=== PATIENT | male | born 1935 | race Caucasian/White ===

== ENCOUNTER → 2016-05-20 | Outpatient (CLI) | payer MEDICARE, BC ==
[2016-05-20 11:07] LABS: ANION GAP 12 (5-19); BLOOD UREA NITROGEN 25 mg/dL (7-20); CALCIUM 10.6 mg/dL (8.4-10.2); CARBON DIOXIDE 29 mmol/L (22-30); CHLORIDE 103 mmol/L (98-107); CREATININE RESULT 1.35 mg/dL (0.52-1.25); GLUCOSE 96 mg/dL (75-110); POTASSIUM 5.5 mmol/L (3.6-5.0); SODIUM 143.6 mmol/L (137-145)
== END ==
LOC: OD 09:41
PROVIDERS: ATTEND Internal Medicine Cardiovascular Disease
DX: I12.9 Hypertensive chronic kidney disease with stage 1 through stage 4 chronic kidney disease, or unspecified chronic kidney disease (principal); N18.2 Chronic kidney disease, stage 2 (mild); R73.09 Other abnormal glucose; I48.91 Unspecified atrial fibrillation; Z79.01 Long term (current) use of anticoagulants; I42.9 Cardiomyopathy, unspecified; E78.00 Pure hypercholesterolemia, unspecified
CPT/HCPCS: 36415; 80048; 83036

== ENCOUNTER 2016-07-29 13:09 | Inpatient (IN) | payer MEDICARE, BC ==
--- NOTE | 2016-07-29 13:30 | ER Document Report ---
ED General - General Stated Complaint: DIFFICULTY BREATHING Mode of Arrival: Ambulatory Information source: Patient, Dr. Office Notes: 81-year-old male history of congestive heart failure Michele ham presents from his physician's office with concerns of worsening congestive heart failure. Patient was noted to be satting 87% on room air at the office. Patient is not on oxygen at home. Patient's nut orchardist just stopped his Lasix 2 months ago and decreased the spironolactone Patient admits to weight gain peripheral edema TRAVEL OUTSIDE OF THE [place] IN LAST 30 DAYS: No - HPI Onset: Last week Onset/Duration: Persistent Quality of pain: No pain Severity: Moderate Pain Level: Denies Associated symptoms: Nonproductive cough, Shortness of breath Exacerbated by: Supine, Movement, Walking Relieved by: Denies Similar symptoms previously: Yes Recently seen / treated by doctor: Yes - Related Data Allergies/Adverse Reactions: No Known Allergies Allergy (Verified 07/29/16 14:24) Past Medical History - Social History Smoking Status: Never Smoker Cigarette use (# per day): No Chew tobacco use (# tins/day): No Smoking Education Provided: No Family History: Reviewed & Not Pertinent - Past Medical History Cardiac Medical History: Reports: Hx Atrial Fibrillation, Hx Hypertension Past Surgical History: Reports: Hx Orthopedic Surgery - right knee replacement - Immunizations Hx Diphtheria, Pertussis, Tetanus Vaccination: - unknown Review of Systems - Review of Systems Notes: REVIEW OF SYSTEMS: CONSTITUTIONAL : Denies fever, chills, or sweats. Denies recent illness. EENT: Denies eye, ear, throat, or mouth pain or symptoms. Denies nasal or sinus congestion or discharge. Denies throat, tongue, or mouth swelling or difficulty swallowing. CARDIOVASCULAR: Admits to peripheral edema RESPIRATORY: Admits to shortness of breath difficulty breathing GASTROINTESTINAL: Denies abdominal pain or distention. Denies nausea, vomiting , or diarrhea. Denies blood in vomitus, stools, or per rectum. Denies black, tarry stools. Denies constipation. GENITOURINARY: Denies difficulty urinating, painful urination, burning, frequency, blood in urine, or discharge. MUSCULOSKELETAL: Denies back or neck pain or stiffness. Denies joint pain or swelling. SKIN: Denies rash, lesions or sores. HEMATOLOGIC : Denies easy bruising or bleeding. LYMPHATIC: Denies swollen, enlarged glands. NEUROLOGICAL: Denies confusion or altered mental status. Denies passing out or loss of consciousness. Denies dizziness or lightheadedness. Denies headache. Denies weakness or paralysis or loss of use of either side. Denies problems with gait or speech. Denies sensory loss, numbness, or tingling. Denies seizures. PSYCHIATRIC: Denies anxiety or stress. Denies depression, suicidal ideation, or homicidal ideation. ALL OTHER SYSTEMS REVIEWED AND NEGATIVE. Dictation was performed using [employer] voice recognition software PHYSICAL EXAMINATION: GENERAL: Well-appearing, well-nourished and in mild respiratory distress hypoxic HEAD: Atraumatic, normocephalic. EYES: Pupils equal round and reactive to light, extraocular movements intact, sclera anicteric, conjunctiva are normal. ENT: Nares patent, oropharynx clear without exudates. Moist mucous membranes. NECK: Normal range of motion, supple without lymphadenopathy LUNGS: Coarse rhonchi all throughout HEART: Regular rate and rhythm without murmurs ABDOMEN: Soft, nontender, nondistended abdomen. No guarding, no rebound. No masses appreciated. Musculoskeletal: +3 pitting edema bilateral lower extremities NEUROLOGICAL: Cranial nerves grossly intact. Normal speech, normal gait. Normal sensory, motor exams PSYCH: Normal mood, normal affect. SKIN: Warm, Dry, normal turgor, no rashes or lesions noted. Physical Exam - Vital signs Vitals: Temp Pulse BP Pulse Ox 97.6 F 78 160/86 H 89 L 07/29/16 13:17 07/29/16 13:17 07/29/16 13:17 07/29/16 13:17 Course - Re-evaluation Re-evalutation: 07/29/16 14:07 Patient obvious CHF exacerbation, BiPAP ordered. Lasix has been ordered as well. Patient is noted to be hypoxic on room air 07/29/16 14:56 Dr gunn will admit for the hypoxemia and copd exacerbation - Vital Signs Vital signs: Temp Pulse Resp BP Pulse Ox 97.6 F 78 17 160/86 H 99 07/29/16 13:17 07/29/16 13:17 07/29/16 14:00 07/29/16 13:17 07/29/16 14:00 - Laboratory Result Diagrams: 07/29/16 13:30 07/29/16 13:30 Laboratory results interpreted by me: 07/29/16 07/29/16 07/29/16 13:30 13:30 13:30 RDW 15.6 H Lymphocytes % 12.5 L Sodium 147.9 H BUN 29 H Creatinine 1.37 H Est GFR (Non-Af Amer) 50 L Calcium 10.3 H Direct Bilirubin 0.5 H Alkaline Phosphatase 136 H NT-Pro-B Natriuret Pep 3370 H Urine Protein Urine Glucose (UA) Urine Urobilinogen 07/29/16 14:00 RDW Lymphocytes % Sodium BUN Creatinine Est GFR (Non-Af Amer) Calcium Direct Bilirubin Alkaline Phosphatase NT-Pro-B Natriuret Pep Urine Protein 100 H Urine Glucose (UA) 50 H Urine Urobilinogen 2.0 H - Diagnostic Test Radiology reviewed: Image reviewed, Reports reviewed - chf exacerbation - EKG Interpretation by Me EKG shows normal: Sinus rhythm, [place], Intervals, QRS Complexes Critical Care Note - Critical Care Note Total time excluding time spent on procedures (mins): 34 Comments: 34 minutes of critical care time spent in direct contact evaluating and reevaluating the patient, treating symptoms, reviewing labs and studies and speaking with family and consultants excluding any procedures Discharge - Discharge Clinical Impression: Hypoxemia Hypertension Qualifiers: Hypertension type: essential hypertension Qualified Code(s): I10 - Essential ( primary) hypertension Acute on chronic congestive heart failure Qualifiers: Congestive heart failure type: systolic Qualified Code(s): I50.23 - Acute on chronic systolic (congestive) heart failure Condition: Stable Disposition: ADMITTED INPATIENT Admitting Provider: Hospitalist Unit Admitted: [facility]
[2016-07-29 13:46] LABS: ABSOLUTE BASOPHILS # (AUTO) 0.1 10^3/uL (0.0-0.2); ABSOLUTE EOSINOPHILS # (AUTO) 0.1 10^3/uL (0.0-0.6); ABSOLUTE LYMPHOCYTES (AUTO) 1.2 10^3/uL (0.5-4.7); ABSOLUTE MONOCYTES (AUTO) 0.8 10^3/uL (0.1-1.4); ABSOLUTE NEUT (AUTO) 7.6 10^3/uL (1.7-8.2); BASOPHILS % (AUTO) 0.6 % (0-2); EOSINOPHILS % (AUTO) 0.7 % (0-6); HEMATOCRIT 47.2 % (37.9-51.0); HGB HCT DIFFERENCE 0.8; LYMPHOCYTES % (AUTO) 12.5 % (13-45); MEAN CORPUSCULAR HEMOGLOBIN 32.9 pg (27.0-33.4); MEAN CORPUSCULAR HGB CONC 33.9 g/dL (32.0-36.0); MEAN CORPUSCULAR VOLUME 97 fl (80-97); MONOCYTES % (AUTO) 8.3 % (3-13); RED BLOOD COUNT 4.86 10^6/uL (4.35-5.55); RED CELL DISTRIBUTION WIDTH 15.6 % (11.5-14.0); SEGMENTED NEUTROPHILS % (AUTO) 77.9 % (42-78); WHITE BLOOD COUNT 9.8 10^3/uL (4.0-10.5)
[2016-07-29 14:02] LABS: ALANINE AMINOTRANSFERASE 32 U/L (21-72); ALKALINE PHOSPHATASE 136 U/L (38-126); ANION GAP 14 (5-19); ASPARTATE AMINO TRANSFERASE 22 U/L (17-59); BILIRUBIN,DIRECT 0.5 mg/dL (0.0-0.4); BILIRUBIN,TOTAL 1.2 mg/dL (0.2-1.3); BLOOD UREA NITROGEN 29 mg/dL (7-20); CALCIUM 10.3 mg/dL (8.4-10.2); CARBON DIOXIDE 27 mmol/L (22-30); CHLORIDE 107 mmol/L (98-107); CREATINE KINASE 85 U/L (55-170); CREATININE RESULT 1.37 mg/dL (0.52-1.25); GLUCOSE 100 mg/dL (75-110); POTASSIUM 3.9 mmol/L (3.6-5.0); SODIUM 147.9 mmol/L (137-145); TOTAL PROTEIN 7.5 g/dL (6.3-8.2)
[2016-07-29] MEDS ORDERED: FUROSEMIDE INJ/PF 100 MG/10 ML SDV IV ONE (14:02)
[2016-07-29 14:16] LABS: CREATINE KINASE MB 2.07 ng/mL (<4.55)
[2016-07-29 14:17] LABS: TROPONIN I < 0.012 ng/mL
[2016-07-29 14:37] LABS: APPEARANCE,URINE CLEAR; BILIRUBIN,URINE NEGATIVE (NEGATIVE); GLUCOSE, URINE 50 mg/dL (NEGATIVE); KETONES,URINE NEGATIVE (NEGATIVE); LEUKOCYTE ESTERASE,URINE NEGATIVE (NEGATIVE); NITRITE,URINE NEGATIVE (NEGATIVE); PROTEIN,URINE 100 mg/dL (NEGATIVE); URINE SPECIFIC GRAVITY 1.023
[2016-07-29 17:52] LABS: PROTHROMBIN TIME 31.7 SEC (11.4-15.4)
--- NOTE | 2016-07-29 18:33 | EKG REPORT ---
SEVERITY:- ABNORMAL ECG - ATRIAL FIBRILLATION, V-RATE 76-106 BORDERLINE RIGHT AXIS DEVIATION : Confirmed by: Celio Rosa MD 29-Jul-2016 18:32:03
[2016-07-29] MEDS: DILTIAZEM HCL 240 MG CAPSULE.CR PO SCH (19:58)
--- NOTE | 2016-07-29 20:19 | PDOC H&P ---
History of Present Illness Admission Date/PCP: 07/29/16 17:29 GLADYS HERNANDEZ NP Patient complains of: Shortness of breath History of Present Illness: NICOLA HEAD is a 81 year old male history of congestive heart failure A. fib presents from his physician's office with concerns of worsening congestive heart failure. Patient was noted to be satting 87% on room air at the office. Patient is not on oxygen at home. Patient's gun stocker just stopped his Lasix 2 months ago and decreased the spironolactone Patient admits to weight gain peripheral edema Upon evaluation in the ED patient was diagnosed of acute on chronic CHF, and acute respiratory failure He was treated with IV Lasix He was placed on BiPAP support He was subsequently admitted under hospitalist service to [facility] for further evaluation and care Past Medical History Cardiac Medical History: Reports: Atrial Fibrillation, Congestive Heart Failure , Hypertension Past Surgical History Past Surgical History: Reports: Orthopedic Surgery - right knee replacement Social History Information Source: Patient Smoking Status: Former Smoker Number of Years Smokin Last Time Smoked: 1997 Frequency of Alcohol Use: None Hx Recreational Drug Use: No Hx Prescription Drug Abuse: No - Advance Directive Resuscitation Status: Full Code Surrogate healthcare decision maker:: his [place] Family History Family History: Reviewed & Not Pertinent Parental Family History Reviewed: Yes Children Family History Reviewed: Yes Sibling(s) Family History Reviewed.: Yes Medication/Allergy Home Medications: Albuterol Sulfate [Ventolin Hfa] 2 puff IH Q4HP PRN 07/29/16 Diltiazem HCl [Diltiazem 24Hr Cd] 240 mg PO BIDBS 07/29/16 Doxycycline Hyclate [Vibramycin] 100 mg PO Q12 07/29/16 Metoprolol Succinate [Toprol XL 200 mg Tablet] 200 mg PO DAILY 07/29/16 Prednisone [Deltasone] 20 mg PO BIDBS 07/29/16 Warfarin Sodium [Coumadin 5 mg Tablet] 5 mg PO QHS 07/29/16 Allergies/Adverse Reactions: No Known Allergies Allergy (Verified 07/29/16 14:24) Review of Systems Constitutional: ABSENT: chills, fever(s), headache(s), weight gain, weight loss Eyes: ABSENT: visual disturbances Ears: ABSENT: hearing changes Cardiovascular: PRESENT: dyspnea on exertion, edema, orthropnea. ABSENT: chest pain, palpitations Respiratory: PRESENT: as per HPI, cough, dyspnea. ABSENT: hemoptysis Gastrointestinal: ABSENT: abdominal pain, constipation, diarrhea, hematemesis, hematochezia, nausea, vomiting Genitourinary: ABSENT: dysuria, hematuria Musculoskeletal: ABSENT: joint swelling Integumentary: ABSENT: rash, wounds Neurological: ABSENT: abnormal gait, abnormal speech, confusion, dizziness, focal weakness, syncope Psychiatric: ABSENT: anxiety, depression, homidical ideation, suicidal ideation Endocrine: ABSENT: cold intolerance, heat intolerance, polydipsia, polyuria Hematologic/Lymphatic: ABSENT: easy bleeding, easy bruising Physical Exam Vital Signs: Temp Pulse Resp BP Pulse Ox 97.3 F 112 H 22 H 173/100 H 91 L 07/29/16 18:36 07/29/16 18:36 07/29/16 18:36 07/29/16 18:36 07/29/16 18:36 Intake & Output 07/28/16 07/29/16 07/30/16 00:59 00:59 00:59 Output Total 200 Balance -200 Weight 75.6 kg General appearance: PRESENT: cooperative, mild distress Head exam: PRESENT: atraumatic, normocephalic Eye exam: PRESENT: conjunctiva pink, EOMI, PERRLA. ABSENT: scleral icterus Neck exam: ABSENT: carotid bruit, JVD, lymphadenopathy, thyromegaly Respiratory exam: PRESENT: decreased breath sounds, rales. ABSENT: accessory muscle use Cardiovascular exam: PRESENT: RRR, tachycardia. ABSENT: diastolic murmur, rubs , systolic murmur Pulses: PRESENT: normal dorsalis pedis pul GI/Abdominal exam: PRESENT: normal bowel sounds, soft. ABSENT: distended, guarding, mass, organolmegaly, rebound, tenderness Rectal exam: PRESENT: deferred Extremities exam: PRESENT: +2 edema Neurological exam: PRESENT: alert, awake, oriented to person, oriented to place , oriented to time, oriented to situation, CN II-XII grossly intact. ABSENT: motor sensory deficit Skin exam: PRESENT: dry, intact, warm. ABSENT: cyanosis, rash Results Laboratory Results: 07/29/16 13:30 07/29/16 13:30 MCV 97 fl (80-97) 07/29/16 13:30 MCH 32.9 pg (27.0-33.4) 07/29/16 13:30 MCHC 33.9 g/dL (32.0-36.0) 07/29/16 13:30 RDW 15.6 % (11.5-14.0) H 07/29/16 13:30 Seg Neutrophils % 77.9 % (42-78) 07/29/16 13:30 Lymphocytes % 12.5 % (13-45) L 07/29/16 13:30 Monocytes % 8.3 % (3-13) 07/29/16 13:30 Eosinophils % 0.7 % (0-6) 07/29/16 13:30 Basophils % 0.6 % (0-2) 07/29/16 13:30 Absolute Neutrophils 7.6 10^3/uL (1.7-8.2) 07/29/16 13:30 Absolute Lymphocytes 1.2 10^3/uL (0.5-4.7) 07/29/16 13:30 Absolute Monocytes 0.8 10^3/uL (0.1-1.4) 07/29/16 13:30 Absolute Eosinophils 0.1 10^3/uL (0.0-0.6) 07/29/16 13:30 Absolute Basophils 0.1 10^3/uL (0.0-0.2) 07/29/16 13:30 Chloride 107 mmol/L (98-107) 07/29/16 13:30 Carbon Dioxide 27 mmol/L (22-30) 07/29/16 13:30 Anion Gap 14 (5-19) 07/29/16 13:30 Est GFR ( Amer) > 60 (>60) 07/29/16 13:30 Est GFR (Non-Af Amer) 50 (>60) L 07/29/16 13:30 Glucose 100 mg/dL (75-110) 07/29/16 13:30 Calcium 10.3 mg/dL (8.4-10.2) H 07/29/16 13:30 Total Bilirubin 1.2 mg/dL (0.2-1.3) 07/29/16 13:30 AST 22 U/L (17-59) 07/29/16 13:30 ALT 32 U/L (21-72) 07/29/16 13:30 Alkaline Phosphatase 136 U/L (38-126) H 07/29/16 13:30 Total Protein 7.5 g/dL (6.3-8.2) 07/29/16 13:30 Albumin 4.0 g/dL (3.5-5.0) 07/29/16 13:30 Urine Color YELLOW 07/29/16 14:00 Urine Appearance CLEAR 07/29/16 14:00 Urine pH 6.0 (5.0-9.0) 07/29/16 14:00 Ur Specific [place] 1.023 07/29/16 14:00 Urine Protein 100 mg/dL (NEGATIVE) H 07/29/16 14:00 Urine Glucose (UA) 50 mg/dL (NEGATIVE) H 07/29/16 14:00 Urine Ketones NEGATIVE mg/dL (NEGATIVE) 07/29/16 14:00 Urine Blood NEGATIVE (NEGATIVE) 07/29/16 14:00 Urine Nitrite NEGATIVE (NEGATIVE) 07/29/16 14:00 Ur Leukocyte Esterase NEGATIVE (NEGATIVE) 07/29/16 14:00 Urine WBC (Auto) 1 /HPF 07/29/16 14:00 Urine RBC (Auto) 4 /HPF 07/29/16 14:00 07/29/16 07/29/16 13:30 13:30 Creatine Kinase 85 CK-MB (CK-2) 2.07 Troponin I < 0.012 NT-Pro-B Natriuret Pep 3370 H EKG Comments: AFIB] . ATRIAL FIBRILLATION, V-RATE 76-106 [AXR] . BORDERLINE RIGHT AXIS DEVIATION [id number] ADILENENICOLA I 29-Jul-2016 13:38:56 : 1935 81 Years Male Race: White Dept: ED Room: ED08 Oper: [facility] Impressions: Chest X-Ray 07/29/16 13:29 IMPRESSION: Mild cardiomegaly and minimal left pleural effusion. Assessment & Plan - Diagnosis (1) Acute respiratory failure Qualifiers: Respiratory failure complication: hypoxia Qualified Code(s): J96.01 - Acute respiratory failure with hypoxia Is this a current diagnosis for this admission?: YesPlan: Acute respiratory failure secondary to acute on chronic CHF Patient will be given supplemental O2 The BiPAP support when necessary V ABGs will be ordered (2) Atrial fibrillation Qualifiers: Atrial fibrillation type: chronic Qualified Code(s): I48.2 - Chronic atrial fibrillation Is this a current diagnosis for this admission?: YesPlan: Rapid ventricular rate 110-115 We will reevaluate medications; increase Cardizem if needed (3) Anticoagulation goal of INR 2.0 to 2.5 Is this a current diagnosis for this admission?: YesPlan: Continue Coumadin INR therapeutic at 2.9 (4) CHF exacerbation Qualifiers: Congestive heart failure type: systolic Qualified Code(s): I50.23 - Acute on chronic systolic (congestive) heart failure Is this a current diagnosis for this admission?: YesPlan: No echocardiogram is available in the records Echocardiogram in a.m. (5) Hypertension Qualifiers: Hypertension type: essential hypertension Qualified Code(s): I10 - Essential (primary) hypertension Is this a current diagnosis for this admission?: YesPlan: Accelerated hypertension may have precipitated this episode of CHF Reevaluate medications to control blood pressure - Time Time Spent with patient: Admitted to [facility] inpatient Time Spent: 50 to 70 Minutes - Inpatient Certification Based on my medical assessment, after consideration of the patient's comorbidities, presenting symptoms, or acuity I expect that the services needed warrant INPATIENT care.: Yes I certify that my determination is in accordance with my understanding of Medicare's requirements for reasonable and necessary INPATIENT services [42 CFR 412.3e].: Yes Medical Necessity: Need Close Monitoring Due to Risk of Patient Decompensation, Need For Continuous Telemetry Monitoring
[2016-07-29] MEDS ORDERED: HYDRALAZINE HCL INJ/PF 20 MG/1 ML SDV IV PRN (20:30)
--- NOTE | 2016-07-29 20:45 | PDOC CONSULTATION ---
Consultation Consult Date: 07/29/16 Attending physician:: DALILA PALACIOS Consult reason:: Congestive heart failure, atrial fibrillation History of Present Illness Admission Date/PCP: 07/29/16 17:29 GLADYS HERNANDEZ NP Patient complains of: Shortness of breath History of Present Illness: NICOLA HEAD is a 81 year old male history of congestive heart failure A. jitendra presents from his physician's office with concerns of worsening congestive heart failure. Patient was noted to be satting 87% on room air at the office. Patient is not on oxygen at home. 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 Patient admits to weight gain peripheral edema. Upon evaluation in the ED patient was diagnosed of acute on chronic CHF, and acute respiratory failure He was treated with IV Lasix He was placed on BiPAP support He was subsequently admitted under hospitalist service to [facility] for further evaluation and care. This history was reviewed from the patient, family member and confirmed. Patient has a history of atrial fibrillation which is chronic. Patient last echocardiogram was more than 3 months ago and there has been a significant change in patient condition. Past Medical History Cardiac Medical History: Reports: Atrial Fibrillation, Congestive Heart Failure , Hypertension Past Surgical History Past Surgical History: Reports: Orthopedic Surgery - right knee replacement Social History Information Source: Patient Smoking Status: Former Smoker Number of Years Smokin Last Time Smoked: 1997 Frequency of Alcohol Use: None Hx Recreational Drug Use: No Hx Prescription Drug Abuse: No - Advance Directive Resuscitation Status: Full Code Surrogate healthcare decision maker:: Patient's Family History Family History: Reviewed & Not Pertinent Parental Family History Reviewed: Yes Children Family History Reviewed: Yes Sibling(s) Family History Reviewed.: Yes - Negative for premature coronary artery disease or sudden cardiac in the family amongst first degree relatives. Medication/Allergy Home Medications: Albuterol Sulfate [Ventolin Hfa] 2 puff IH Q4HP PRN 07/29/16 Diltiazem HCl [Diltiazem 24Hr Cd] 240 mg PO BIDBS 07/29/16 Doxycycline Hyclate [Vibramycin] 100 mg PO Q12 07/29/16 Metoprolol Succinate [Toprol XL 200 mg Tablet] 200 mg PO DAILY 07/29/16 Prednisone [Deltasone] 20 mg PO BIDBS 07/29/16 Warfarin Sodium [Coumadin 5 mg Tablet] 5 mg PO QHS 07/29/16 Allergies/Adverse Reactions: No Known Allergies Allergy (Verified 07/29/16 14:24) Review of Systems Review of Systems: Please see history of present illness and past medical history as wall. Constitutional: No fever or chills reported. Head : No recent chronic headaches, recent head injury. Eyes: No recent eye pain, diplopia, redness, discharge, acute visual changes. Ears: No recent chronic ear pain, acute hearing loss, ear discharge. Oral cavity: No recent ulcerations, bleeding, oral cavity discomfort. Neck: No recent acute neck pain reported. Hematologic: No recent easy bruising or bleeding or hematologic malignancy reported. Lymphatic: No recent lymphatic malignancy, chronic lymphadenopathy reported yet Cardiovascular system review: See history of present illness. Respiratory system review: No hemoptysis, blood clots in the lungs reported. Significant Shortness of breath on exertion. Patient gives history of COPD. Patient has noted some recent cough with sputum production Gastrointestinal system review: Negative for any recent acute or chronic abdominal pain, hematemesis, melena, recent change in bowel habits. Genitourinary system review: No recent acute or chronic hematuria, flank pain, UTI etc. reported. Skin system review: Negative for any recent abnormal bruising, no rash, no pruritus reported. Neurologic: No prior history of strokes, mini strokes, seizure disorder. Psychologic: No history of major psychosis or major depression reported. Musculoskeletal: Minor aches and pains reported. No acute joint swelling reported. Endocrine: No recent polyuria, polydipsia, recent heat or cold intolerance. Physical Exam Vital Signs: Temp Pulse Resp BP Pulse Ox 97.3 F 112 H 22 H 173/100 H 91 L 07/29/16 18:36 07/29/16 18:36 07/29/16 18:36 07/29/16 18:36 07/29/16 18:36 Intake & Output 07/28/16 07/29/16 07/30/16 06:59 06:59 06:59 Output Total 200 Balance -200 Weight 75.6 kg Exam: GENERAL: well-nourished and in no acute distress. Alert and oriented x3 HEAD: Atraumatic, normocephalic. EYES: Pupils equal round and reactive to light, extraocular movements intact, sclera anicteric, conjunctiva are normal. ENT: TMs normal, nares patent, oropharynx clear without exudates. Moist mucous membranes. No oral ulcerations or bleeding gums noted NECK: supple without lymphadenopathy. Trachea is central. No cervical or axillary lymphadenopathy noted. Carotids are 2+, JVD NOTED UP TO ANGLE OF JAW LUNGS: Respiration seems nonlabored, no significant accessory muscle action noted. Bibasal a fine crackles noted up to 1/ [address] up. CHEST: Palpation of the chest wall shows no significant chest wall tenderness. No other significant abnormalities noted. HEART: [employer], No PSH, 1/6 ALYSON aortic area, 1/6 donis systolic murmur mitral area, no rubs, no gallops. ABDOMEN: Soft, no significant tenderness appreciated, normoactive bowel sounds. No guarding, no rebound. No rigidity noted . No masses appreciated. EXTREMITIES: Pedal pulses are 1-2+, no calf tenderness noted. No clubbing or cyanosis.trace to 1+ pedal edema noted NEUROLOGICAL: Focused neurological exam showed no significant neurologic deficit. Normal speech, no focal weakness appreciated. PSYCH: Normal mood, normal affect. Judgment and insight within normal limits. SKIN: No significant ecchymosis, rash, ulcerations or signs of pruritus noted. MUSCULOSKELETAL EXAM: No significant joint swelling noted. Results Laboratory Results: 07/29/16 19:45 Troponin I < 0.012 EKG Comments: Atrial fibrillation, no acute ST-T wave changes are noted. Impressions: Chest X-Ray 07/29/16 13:29 IMPRESSION: Mild cardiomegaly and minimal left pleural effusion. Assessment & Plan - Diagnosis (1) CHF exacerbation Qualifiers: Congestive heart failure type: unspecified congestive heart failure type Qualified Code(s): I50.9 - Heart failure, unspecified Is this a current diagnosis for this admission?: Yes (2) Atrial fibrillation Qualifiers: Atrial fibrillation type: chronic Qualified Code(s): I48.2 - Chronic atrial fibrillation Is this a current diagnosis for this admission?: Yes (3) Hypertension Qualifiers: Hypertension type: essential hypertension Qualified Code(s): I10 - Essential (primary) hypertension Is this a current diagnosis for this admission?: Yes (4) Hypoxemia Is this a current diagnosis for this admission?: Yes (5) Acute respiratory failure Qualifiers: Respiratory failure complication: hypoxia Qualified Code(s): J96.01 - Acute respiratory failure with hypoxia Is this a current diagnosis for this admission?: Yes - Notes Notes: Congestive heart failure: This is acute on chronic. Agree with IV diuretics, rate control for A. fib. Will obtain a 2-D echo to look at any exacerbating factor. Atrial fibrillation: This is chronic. Recommend rate control and chronic anticoagulation. Hypertension: Reasonably well controlled. Blood pressure goal in this patient is 135/85 or less. This was discussed with the patient. Currently blood pressure under reasonable control. Better medication for this patient are FABIANO inhibitor/ARB/beta jeremiah etc. discussed side effects of uncontrolled hypertension and also severe hypotension. Hypoxemia: Continue oxygenation. May consider arterial blood gas in view of history of COPD. Acute respiratory failure: Most likely precipitated by CHF on top of COPD. Continue oxygenation and intermittent positive noninvasive ventilation. - Time Time Spent: 30 to 50 Minutes - CODE STATUS was discussed, patient remains full code. Surrogate decision-maker elevation is . Multiple medical problems were addressed.More than 50% of the time spent coordinating care, discussing management plans with involved caregivers. Management plans discussed with involved personnels. Medical decision making was of moderate complexity.
[2016-07-29] MEDS ORDERED: LISINOPRIL 10 MG TABLET PO ONE (21:00)
[2016-07-29] MEDS: FAMOTIDINE INJ/PF 20 MG/2 ML SDV IV SCH (21:55)
[2016-07-29] MEDS: HYDRALAZINE HCL 25 MG TABLET PO SCH (21:57)
[2016-07-29] MEDS: WARFARIN SODIUM 5 MG TABLET PO SCH (21:58)
[2016-07-29] MEDS ORDERED: (PENDING PHARMACY ID) (Warfarin Sodium 5 MG) PO SCH (22:00)
[2016-07-29] MEDS ORDERED: (PENDING PHARMACY ID) (Doxycycline Hyclate [Vibramycin] 100 MG) PO SCH (22:00)
[2016-07-30] MEDS: FUROSEMIDE INJ/PF 40 MG/4 ML SDV IV SCH ×3 (00:07→21:36)
[2016-07-30] MEDS ORDERED: DOXYCYCLINE HYCLATE 100 MG TABLET PO ONE (01:13)
[2016-07-30] MEDS: DOXYCYCLINE HYCLATE 100 MG TABLET PO SCH ×3 (01:24→21:37)
[2016-07-30] MEDS: DILTIAZEM HCL 240 MG CAPSULE.CR PO SCH ×2 (06:15→18:27)
[2016-07-30 07:11] LABS: PROTHROMBIN TIME 25.8 SEC (11.4-15.4)
[2016-07-30 07:22] LABS: ANION GAP 18 (5-19); BLOOD UREA NITROGEN 32 mg/dL (7-20); CALCIUM 10.9 mg/dL (8.4-10.2); CARBON DIOXIDE 26 mmol/L (22-30); CHLORIDE 102 mmol/L (98-107); CHOLESTEROL 173.45 mg/dL (0-200); CREATININE RESULT 1.46 mg/dL (0.52-1.25); Direct HDL 45 mg/dL (>40); GLUCOSE 145 mg/dL (75-110); POTASSIUM 3.7 mmol/L (3.6-5.0); SODIUM 145.6 mmol/L (137-145); TRIGLYCERIDES 81 mg/dL (<150)
[2016-07-30 07:32] LABS: DIRECT LDL 94 mg/dL (<100)
[2016-07-30] MEDS ORDERED: ENOXAPARIN SODIUM INJ 30 MG/0.3 ML DISP.SYRIN SUBCUT SCH (08:00)
[2016-07-30] MEDS ORDERED: (PENDING PHARMACY ID) (Diltiazem Hcl [Diltiazem 24hr Cd] 240 MG) PO SCH (08:00)
--- NOTE | 2016-07-30 08:08 | EKG REPORT ---
SEVERITY:- ABNORMAL ECG - ATRIAL FIBRILLATION, V-RATE 79-155 BORDERLINE RIGHT AXIS DEVIATION NONSPECIFIC REPOL ABNORMALITY, LATERAL LEADS : Confirmed by: Celio Rosa MD 30-Jul-2016 08:08:15
[2016-07-30 09:11] LABS: ARTERIAL BLOOD BASE EXCESS 1.5 mmol/L
[2016-07-30] MEDS ORDERED: LISINOPRIL 10 MG TABLET PO SCH (10:00)
[2016-07-30] MEDS ORDERED: (PENDING PHARMACY ID) (Metoprolol Succinate [Toprol Xl 200 Mg Tablet] 200 MG) PO SCH (10:00)
[2016-07-30] MEDS: FAMOTIDINE INJ/PF 20 MG/2 ML SDV IV SCH ×2 (10:38→21:36)
[2016-07-30] MEDS: METOPROLOL SUCCINATE 50 MG TAB.SR.24H PO SCH (10:39)
[2016-07-30] MEDS: HYDRALAZINE HCL 25 MG TABLET PO SCH ×2 (10:40→21:37)
[2016-07-30] MEDS ORDERED: IPRATROPIUM BROMIDE 0.02% NEB 0.5 MG/2.5 ML AMPUL NEB PRN (11:07)
--- NOTE | 2016-07-30 11:12 | PDOC PROGRESS REPORT ---
Subjective Progress Note for:: 07/30/16 Subjective:: Reason for visit: Follow-up congestive heart failure. Hospital course: Per H&P "NICOLA HEAD is a 81 year old male history of congestive heart failure A. fib presents from his physician's office with concerns of worsening congestive heart failure. Patient was noted to be satting 87% on room air at the office. Patient is not on oxygen at home. 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 He is still breathless with minimal exertion. He denies chest pain or palpitations and remains in atrial fibrillation. He denies nausea, vomiting, fever, chills. ROS: per HPI plus a total of 10 systems reviewed, pertinent positives and negatives noted above, remaining systems negative. Physical Exam Vital Signs: Temp Pulse Resp BP Pulse Ox 98.3 F 119 H 20 150/79 H 96 07/30/16 07:26 07/30/16 07:26 07/30/16 07:26 07/30/16 07:26 07/30/16 07:26 Intake & Output 07/29/16 07/30/16 07/31/16 06:59 06:59 06:59 Intake Total 14 Output Total 200 Balance -186 Weight 75.2 kg EXAM GENERAL: mild resp distress; well developed, well nourished; no obese; alert and oriented to person, place, time, situation HEENT: normocephalic, atraumatic; no conjunctival injection, no scleral icterus ; oral mucosa moist; supplemental O2 by nasal cannula at 5 L/m RESPIRATORY: Mild accessory muscle use, minimal increased WOB, good air entry bilaterally; bilateral diffuse wheezes and rhonchi; bilateral inspiratory crackles, no noa rales CARDIO: JVD to the angle of the jaw; irregularly irregular; no systolic murmur; mild tachycardia GI: soft; nondistended; normal bowel sounds; no rebound, rigidity, guarding; nontender VASCULAR: no pallor; 2+ radial, DP pulse; normal capillary refill EXTREMITIES: no calf tender; no palpable cords in calf; no clubbing, cyanosis , 1+ bilateral edema PSYCH: normal affect, normal mood SKIN: warm; moist; no petechiae; no telengectasias; no jaundice; no rash Results Laboratory Results: 07/30/16 06:14 07/30/16 07/30/16 07/30/16 06:14 06:14 07:00 Carbonic Acid 1.04 L HCO3/H2CO3 Ratio 23:1 ABG pH 7.47 H ABG pCO2 34.4 L ABG pO2 69.1 L ABG HCO3 24.5 ABG O2 Saturation 95.0 ABG Base Excess 1.5 FiO2 5 L Sodium 145.6 H Potassium 3.7 Chloride 102 Carbon Dioxide 26 Anion Gap 18 BUN 32 H Creatinine 1.46 H Est GFR ( Amer) 56 L Est GFR (Non-Af Amer) 46 L Glucose 145 H Calcium 10.9 H Triglycerides 81 Cholesterol 173.45 LDL Cholesterol Direct 94 VLDL Cholesterol 16.0 HDL Cholesterol 45 TSH 4.02 07/29/16 07/30/16 07/30/16 19:45 01:45 02:13 Troponin I < 0.012 Cancelled < 0.012 NT-Pro-B Natriuret Pep 07/30/16 06:14 Troponin I NT-Pro-B Natriuret Pep 6110 H Impressions: Chest X-Ray 07/29/16 13:29 IMPRESSION: Mild cardiomegaly and minimal left pleural effusion. Status: Imported from PACS Assessment & Plan - Diagnosis (1) CHF exacerbation Qualifiers: Congestive heart failure type: unspecified congestive heart failure type Qualified Code(s): I50.9 - Heart failure, unspecified Is this a current diagnosis for this admission?: YesPlan: Improved. Appreciate cardiology's input. Follow up echo results. Continue diuresis attempting to achieve 1 L per day in the negative. (2) Acute respiratory failure with hypoxia Is this a current diagnosis for this admission?: YesPlan: Multifactorial, minimally improved. Continue attempts at diuresis and continue treatment for presumed bacterial bronchitis. Add bronchodilator therapy and systemic steroids. (3) Acute bacterial bronchitis Is this a current diagnosis for this admission?: YesPlan: Continue doxycycline. Otherwise as above. (4) Anticoagulation goal of INR 2.0 to 2.5 Is this a current diagnosis for this admission?: YesPlan: Continue home dose of warfarin and monitor INR. (5) Atrial fibrillation Qualifiers: Atrial fibrillation type: chronic Qualified Code(s): I48.2 - Chronic atrial fibrillation Is this a current diagnosis for this admission?: YesPlan: Rate is borderline, titrate rate controlling medicines as needed. Likely worsened by restaurant distress and hypoxia. (6) Hypertension Qualifiers: Hypertension type: essential hypertension Qualified Code(s): I10 - Essential (primary) hypertension Is this a current diagnosis for this admission?: YesPlan: Not well controlled, may need additional agent. Consider clonidine which may help with rate control as well. - Time Time Spent with patient: 25-34 minutes Medications reviewed and adjusted accordingly: Yes Anticipated discharge: Home Within: within 48 hours
[2016-07-30] MEDS ORDERED: METHYLPREDNISOLONE INJ 40 MG/1 ML SDV IV ONE (12:00)
--- NOTE | 2016-07-30 12:04 | XCELERA REPORT ---
[address] [address] Transthoracic Echocardiogram Report Name: NICOLA HEAD I Age: 81 yrs Gender: Male : 1935 Patient Status: Inpatient Patient Location: [id number]\314\S\A Study Date: 07/30/2016 10:12 AM Height: 65 in Weight: 166 lb BSA: 1.8 m2 Procedure: A complete two-dimensional transthoracic echocardiogram was performed (2D, M-mode, spectral and color flow Doppler). The study was technically difficult with many images being suboptimal in quality. Reason For Study: CHF Ordering Physician: DALILA PALACIOS Performed By: Mary Metzger Interpretation Summary The left ventricular ejection fraction is normal. There is mild concentric left ventricular hypertrophy. Doppler measurements suggest pseudonormalized left ventricular relaxation, which is associated with grade II/IV or mild to moderate diastolic dysfunction The left ventricle is grossly normal size. Wall motion cannot be accurately commented on, but no definite regional wall motion abnormalities noted. The right ventricle appears to be hypertrophied The right ventricle is mild to moderately dilated. The right ventricular systolic function is normal. The left atrium is moderately dilated. The right atrium is moderately dilated. There is a trace to mild amount of mitral regurgitation There is no mitral valve stenosis. There is a trace amount of aortic regurgitation There is no aortic valve stenosis There is a mild to moderate amount of tricuspid regurgitation There is servere pulmonary hypertension by echo Right ventricular systolic pressure is estimated to be elevated at >60mmHg. The aortic root is not well visualized but is probably normal size. The inferior vena cava appeared normal and decreased > 50% with respiration (RAP 5-10 mmHg) There is no pericardial effusion. MMode/2D Measurements \T\ Calculations RVDd: 4.2 cm LVIDd: 3.9 cm FS: 39.5 % Ao root diam: 1.9 cm IVSd: 0.97 cm LVIDs: 2.4 cm EDV(Teich): 67.5 ml LVPWd: 1.0 cm ESV(Teich): 19.8 ml Ao root area: 2.8 cm2 EF(Teich): 70.7 % LA dimension: 5.0 cm Doppler Measurements \T\ Calculations MV E max wilman: MV P1/2t max wilman: Ao V2 max: LV V1 max P.4 cm/sec 131.4 cm/sec 152.0 cm/sec 4.9 mmHg MV A max wilman: MV P1/2t: 47.6 msec Ao max PG: LV V1 max: 47.5 cm/sec 9.2 mmHg 110.4 cm/sec MV E/A: 2.8 MVA(P1/2t): 4.6 cm2 MV dec slope: 808.2 cm/sec2 MV dec time: 0.17 sec PA V2 max: TR max wilman: 66.1 cm/sec 415.4 cm/sec PA max PG: TR max P.0 mmHg 1.7 mmHg Left Ventricle The left ventricle is grossly normal size. There is mild concentric left ventricular hypertrophy. The left ventricular ejection fraction is normal. Doppler measurements suggest pseudonormalized left ventricular relaxation, which is associated with grade II/IV or mild to moderate diastolic dysfunction. Wall motion cannot be accurately commented on, but no definite regional wall motion abnormalities noted. Right Ventricle The right ventricle is mild to moderately dilated. The right ventricle appears to be hypertrophied. The right ventricular systolic function is normal. Atria The right atrium is moderately dilated. The left atrium is moderately dilated. Interarterial septum not well visualized and not well dopplered. Cannot comment on ASD/PFO presence. Mitral Valve The mitral valve is grossly normal. There is no mitral valve stenosis. There is a trace to mild amount of mitral regurgitation. Aortic Valve The aortic valve is grossly normal. There is no aortic valve stenosis. There is a trace amount of aortic regurgitation. Tricuspid Valve The tricuspid valve is not well visualized, but is grossly normal. There is no tricuspid stenosis. There is a mild to moderate amount of tricuspid regurgitation. There is servere pulmonary hypertension by echo. Right ventricular systolic pressure is estimated to be elevated at >60mmHg. Pulmonic Valve The pulmonic valve is not well visualized. Great Vessels The aortic root is not well visualized but is probably normal size. The inferior vena cava appeared normal and decreased > 50% with respiration (RAP 5-10 mmHg). Effusions There is no pericardial effusion. : DALILA PALACIOS > Devon Bailon
--- NOTE | 2016-07-30 18:20 | PDOC PROGRESS REPORT ---
Subjective Progress Note for:: 07/30/16 Subjective:: Patient seems to be doing better with gradual improvement. Pt is denying any chest arm or neck discomfort. Patient denying any PND, orthopnea. Patient denied any sustained palpitations, dizziness, syncope, near syncope. Patient denying any fever chills. Patient denying any other significant discomfort. Patient is maintaining atrial fibrillation, heart rate reasonably well controlled. Review of systems: Rest review of systems negative. Medications: Medications have been reviewed. Physical Exam Vital Signs: Temp Pulse Resp BP Pulse Ox 98.2 F 82 20 157/76 H 92 07/30/16 11:25 07/30/16 14:00 07/30/16 12:20 07/30/16 11:25 07/30/16 16:00 Intake & Output 07/29/16 07/30/16 07/31/16 06:59 06:59 06:59 Intake Total 14 360 Output Total 200 Balance -186 360 Weight 75.2 kg 75.2 kg Exam: GENERAL: well-nourished and in no acute distress. Alert and oriented x3 HEAD: Atraumatic, normocephalic. EYES: Pupils equal round and reactive to light, extraocular movements intact, sclera anicteric, conjunctiva are normal. ENT: TMs normal, nares patent, oropharynx clear without exudates. Moist mucous membranes. No oral ulcerations or bleeding gums noted NECK: supple without lymphadenopathy. Trachea is central. No cervical or axillary lymphadenopathy noted. Carotids are 2+, JVD 12 CM LUNGS: Respiration seems nonlabored, no significant accessory muscle action noted. Bilateral mild crackles wheezes rales or rhonchi noted. No significant dullness noted on percussion. CHEST: Palpation of the chest wall shows no significant chest wall tenderness. No other significant abnormalities noted. 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 ABDOMEN: Soft, no significant tenderness appreciated, normoactive bowel sounds. No guarding, no rebound. No rigidity noted . No masses appreciated. EXTREMITIES: Pedal pulses are 1-2+, no calf tenderness noted. No clubbing or cyanosis.1+ pedal edema noted NEUROLOGICAL: Focused neurological exam showed no significant neurologic deficit. Normal speech, no focal weakness appreciated. PSYCH: Normal mood, normal affect. Judgment and insight within normal limits. SKIN: No significant ecchymosis, rash, ulcerations or signs of pruritus noted. MUSCULOSKELETAL EXAM: No significant joint swelling noted. Results Laboratory Results: 07/30/16 06:14 07/30/16 07/30/16 07/30/16 06:14 06:14 07:00 Carbonic Acid 1.04 L HCO3/H2CO3 Ratio 23:1 ABG pH 7.47 H ABG pCO2 34.4 L ABG pO2 69.1 L ABG HCO3 24.5 ABG O2 Saturation 95.0 ABG Base Excess 1.5 FiO2 5 L Sodium 145.6 H Potassium 3.7 Chloride 102 Carbon Dioxide 26 Anion Gap 18 BUN 32 H Creatinine 1.46 H Est GFR ( Amer) 56 L Est GFR (Non-Af Amer) 46 L Glucose 145 H Calcium 10.9 H Triglycerides 81 Cholesterol 173.45 LDL Cholesterol Direct 94 VLDL Cholesterol 16.0 HDL Cholesterol 45 TSH 4.02 07/29/16 07/30/16 07/30/16 19:45 01:45 02:13 Troponin I < 0.012 Cancelled < 0.012 NT-Pro-B Natriuret Pep 07/30/16 06:14 Troponin I NT-Pro-B Natriuret Pep 6110 H Impressions: Chest X-Ray 07/29/16 13:29 IMPRESSION: Mild cardiomegaly and minimal left pleural effusion. Assessment & Plan - Diagnosis (1) CHF (congestive heart failure) Qualifiers: Congestive heart failure type: diastolic Congestive heart failure chronicity: acute on chronic Qualified Code(s): I50.33 - Acute on chronic diastolic (congestive) heart failure Is this a current diagnosis for this admission?: Yes (2) Atrial fibrillation Qualifiers: Atrial fibrillation type: chronic Qualified Code(s): I48.2 - Chronic atrial fibrillation Is this a current diagnosis for this admission?: Yes (3) Hypertension Qualifiers: Hypertension type: essential hypertension Qualified Code(s): I10 - Essential (primary) hypertension Is this a current diagnosis for this admission?: Yes (4) Hypoxemia Is this a current diagnosis for this admission?: Yes (5) Acute respiratory failure Qualifiers: Respiratory failure complication: hypoxia Qualified Code(s): J96.01 - Acute respiratory failure with hypoxia Is this a current diagnosis for this admission?: Yes - Notes Notes: CHF exacerbation: [place] to be related to acute on chronic diastolic heart failure based on echocardiogram report and also with significant contribution from right-sided heart failure. Recommend continuing IV Lasix and other supportive therapy along with salt and fluid restriction. Atrial fibrillation: Chronic. Continue with chronic anticoagulation and rate control. Hypertension: Currently blood pressure reasonably well controlled. Hypoxemia: Continue oxygenation and ventilation. In view off for patient having predominantly right-sided heart failure, would recommend try to qualify patient for home oxygen. Patient would benefit from nocturnal oximetry etc. and this can be carried out through my office. Acute respiratory failure: Currently improving with current management plans. - Time Time with patient: 15-25 minutes - CODE STATUS was discussed, patient remains full code. Surrogate decision-maker unchanged. Multiple medical problems were addressed.More than 50% of the time spent coordinating care, discussing management plans with involved caregivers. Management plans discussed with involved personnels. Medical decision making was of moderate complexity.
[2016-07-30] MEDS: METHYLPREDNISOLONE INJ 40 MG/1 ML SDV IV SCH (21:36)
[2016-07-30] MEDS: WARFARIN SODIUM 5 MG TABLET PO SCH (21:37)
[2016-07-30] MEDS: CLONIDINE HCL 0.1 MG TABLET PO SCH (21:37)
[2016-07-30] MEDS: TEMAZEPAM 15 MG CAPSULE PO PRN (21:37)
[2016-07-31 05:36] LABS: PROTHROMBIN TIME 31.7 SEC (11.4-15.4)
[2016-07-31 05:52] LABS: ANION GAP 14 (5-19); BLOOD UREA NITROGEN 39 mg/dL (7-20); CALCIUM 10.5 mg/dL (8.4-10.2); CARBON DIOXIDE 26 mmol/L (22-30); CHLORIDE 103 mmol/L (98-107); CREATININE RESULT 1.73 mg/dL (0.52-1.25); GLUCOSE 152 mg/dL (75-110); POTASSIUM 3.3 mmol/L (3.6-5.0); SODIUM 142.9 mmol/L (137-145)
[2016-07-31] MEDS: DILTIAZEM HCL 240 MG CAPSULE.CR PO SCH ×2 (06:58→18:16)
[2016-07-31] MEDS: FAMOTIDINE INJ/PF 20 MG/2 ML SDV IV SCH ×2 (10:01→21:42)
[2016-07-31] MEDS: METHYLPREDNISOLONE INJ 40 MG/1 ML SDV IV SCH ×2 (10:01→21:42)
[2016-07-31] MEDS: FUROSEMIDE INJ/PF 40 MG/4 ML SDV IV SCH ×2 (10:01→21:42)
[2016-07-31] MEDS: METOPROLOL SUCCINATE 50 MG TAB.SR.24H PO SCH (10:02)
[2016-07-31] MEDS: HYDRALAZINE HCL 25 MG TABLET PO SCH ×2 (10:03→23:05)
[2016-07-31] MEDS: CLONIDINE HCL 0.1 MG TABLET PO SCH ×2 (10:03→21:43)
[2016-07-31] MEDS: DOXYCYCLINE HYCLATE 100 MG TABLET PO SCH ×2 (10:05→21:41)
--- NOTE | 2016-07-31 12:37 | PDOC PROGRESS REPORT ---
Subjective Progress Note for:: 07/31/16 Subjective:: Patient seems to be doing better with gradual improvement. Pt is denying any chest arm or neck discomfort. Patient denying any PND, orthopnea. Patient denied any sustained palpitations, dizziness, syncope, near syncope. Patient denying any fever chills. Patient denying any other significant discomfort. Patient is maintaining atrial fibrillation, heart rate reasonably well controlled. BNP level has gone up but patient clinically seems better. Will therefore get a chest x-ray. Review of systems: Rest review of systems negative. Medications: Medications have been reviewed. Physical Exam Vital Signs: Temp Pulse Resp BP Pulse Ox 98.0 F 68 16 113/66 93 07/31/16 07:25 07/31/16 12:17 07/31/16 12:17 07/31/16 07:25 07/31/16 12:17 Intake & Output 07/30/16 07/31/16 08/01/16 06:59 06:59 06:59 Intake Total 14 629 Output Total 200 Balance -186 629 Weight 75.2 kg 75.9 kg Exam: GENERAL: well-nourished and in no acute distress. Alert and oriented x3 HEAD: Atraumatic, normocephalic. EYES: Pupils equal round and reactive to light, extraocular movements intact, sclera anicteric, conjunctiva are normal. ENT: TMs normal, nares patent, oropharynx clear without exudates. Moist mucous membranes. No oral ulcerations or bleeding gums noted NECK: supple without lymphadenopathy. Trachea is central. No cervical or axillary lymphadenopathy noted. Carotids are 2+, JVD 12 CM LUNGS: Respiration seems nonlabored, no significant accessory muscle action noted. Bibasal fine crackles are noted. No significant dullness noted CHEST: Palpation of the chest wall shows no significant chest wall tenderness. No other significant abnormalities noted. 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 ABDOMEN: Soft, no significant tenderness appreciated, normoactive bowel sounds. No guarding, no rebound. No rigidity noted . No masses appreciated. EXTREMITIES: Pedal pulses are 1-2+, no calf tenderness noted. No clubbing or cyanosis.1+ + pedal edema noted NEUROLOGICAL: Focused neurological exam showed no significant neurologic deficit. Normal speech, no focal weakness appreciated. PSYCH: Normal mood, normal affect. Judgment and insight within normal limits. SKIN: No significant ecchymosis, rash, ulcerations or signs of pruritus noted. MUSCULOSKELETAL EXAM: No significant joint swelling noted. Results Laboratory Results: 07/31/16 04:48 07/31/16 04:48 Sodium 142.9 Potassium 3.3 L Chloride 103 Carbon Dioxide 26 Anion Gap 14 BUN 39 H Creatinine 1.73 H Est GFR ( Amer) 46 L Est GFR (Non-Af Amer) 38 L Glucose 152 H Calcium 10.5 H 07/29/16 07/30/16 07/30/16 19:45 01:45 02:13 Troponin I < 0.012 Cancelled < 0.012 NT-Pro-B Natriuret Pep 07/30/16 07/31/16 06:14 04:48 Troponin I NT-Pro-B Natriuret Pep 6110 H 8080 H Impressions: Chest X-Ray 07/29/16 13:29 IMPRESSION: Mild cardiomegaly and minimal left pleural effusion. Assessment & Plan - Diagnosis (1) CHF (congestive heart failure) Qualifiers: Congestive heart failure type: diastolic Congestive heart failure chronicity: acute on chronic Qualified Code(s): I50.33 - Acute on chronic diastolic (congestive) heart failure Is this a current diagnosis for this admission?: Yes (2) Atrial fibrillation Qualifiers: Atrial fibrillation type: chronic Qualified Code(s): I48.2 - Chronic atrial fibrillation Is this a current diagnosis for this admission?: Yes (3) Hypertension Qualifiers: Hypertension type: essential hypertension Qualified Code(s): I10 - Essential (primary) hypertension Is this a current diagnosis for this admission?: Yes (4) Hypoxemia Is this a current diagnosis for this admission?: Yes (5) Acute respiratory failure Qualifiers: Respiratory failure complication: hypoxia Qualified Code(s): J96.01 - Acute respiratory failure with hypoxia Is this a current diagnosis for this admission?: Yes (6) COPD (chronic obstructive pulmonary disease) Qualifiers: Emphysema type: unspecified Is this a current diagnosis for this admission?: Yes - Notes Notes: CHF: Seems clinically improving but BNP level is going up. Will get a chest x- ray PA and lateral. Atrial fibrillation: Continue with rate control and chronic anticoagulation. Hypertension: Blood pressure under better control. Hypoxemia: Related to COPD and CHF. Continue oxygen supplementation. May need to qualify patient for oxygen therapy. Acute respiratory failure: Improved. COPD: Continue current management plans. - Time Time with patient: 15-25 minutes - CODE STATUS was discussed, patient remains full code. Surrogate decision-maker unchanged. Multiple medical problems were addressed.More than 50% of the time spent coordinating care, discussing management plans with involved caregivers. Management plans discussed with involved personnels. Medical decision making was of moderate complexity.
[2016-07-31] MEDS ORDERED: BUMETANIDE 1 MG TABLET PO ONE (13:44)
--- NOTE | 2016-07-31 13:55 | PDOC PROGRESS REPORT ---
Subjective Progress Note for:: 07/31/16 Subjective:: Reason for visit: Follow-up congestive heart failure. Hospital course: Per H&P "NICOLA HEAD is a 81 year old male history of congestive heart failure A. fib presents from his physician's office with concerns of worsening congestive heart failure. Patient was noted to be satting 87% on room air at the office. Patient is not on oxygen at home. 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 weight is unchanged. Subjective: He is still breathless with minimal exertion. He denies chest pain or palpitations and remains in atrial fibrillation. He denies nausea, vomiting , fever, chills. ROS: per HPI plus a total of 10 systems reviewed, pertinent positives and negatives noted above, remaining systems negative. Physical Exam Vital Signs: Temp Pulse Resp BP Pulse Ox 98.0 F 68 16 113/66 93 07/31/16 07:25 07/31/16 12:17 07/31/16 12:17 07/31/16 07:25 07/31/16 12:17 Intake & Output 07/30/16 07/31/16 08/01/16 06:59 06:59 06:59 Intake Total 14 629 Output Total 200 Balance -186 629 Weight 75.2 kg 75.9 kg EXAM GENERAL: no resp distress; well developed, well nourished; no obese; alert and oriented to person, place, time, situation HEENT: normocephalic, atraumatic; no conjunctival injection, no scleral icterus ; oral mucosa moist; RESPIRATORY: Mild accessory muscle use, no increased WOB, good air entry bilaterally; resolution of bilateral diffuse wheezes and rhonchi; persistent bilateral inspiratory crackles, no noa rales CARDIO: JVD to the angle of the jaw; irregularly irregular; no systolic murmur; no tachycardia GI: soft; nondistended; normal bowel sounds; no rebound, rigidity, guarding; nontender VASCULAR: no pallor; 2+ radial, DP pulse; normal capillary refill EXTREMITIES: no calf tender; no palpable cords in calf; no clubbing, cyanosis , 1+ bilateral edema slightly improved PSYCH: normal affect, normal mood SKIN: warm; moist; no petechiae; no telengectasias; no jaundice; no rash Results Laboratory Results: 07/31/16 04:48 07/31/16 04:48 Sodium 142.9 Potassium 3.3 L Chloride 103 Carbon Dioxide 26 Anion Gap 14 BUN 39 H Creatinine 1.73 H Est GFR ( Amer) 46 L Est GFR (Non-Af Amer) 38 L Glucose 152 H Calcium 10.5 H 07/29/16 07/30/16 07/30/16 19:45 01:45 02:13 Troponin I < 0.012 Cancelled < 0.012 NT-Pro-B Natriuret Pep 07/30/16 07/31/16 06:14 04:48 Troponin I NT-Pro-B Natriuret Pep 6110 H 8080 H bnp rising Assessment & Plan - Diagnosis (1) CHF exacerbation Qualifiers: Congestive heart failure type: unspecified congestive heart failure type Qualified Code(s): I50.9 - Heart failure, unspecified Is this a current diagnosis for this admission?: YesPlan: Improved. Appreciate cardiology's input. Echo complete, see report in chart but in summary LV ejection fraction is normal however there is 2/4 moderate diastolic dysfunction, RVH with RV dilatation, KENYA, mild MR, mod tricuspid regurg, severe pulm HTN.. Continue diuresis attempting to achieve 1 L per day in the negative, will add oral bumex today and tomorrow for its synergistic effect on diuresis and better absorption. trend BNP (2) Acute respiratory failure with hypoxia Is this a current diagnosis for this admission?: YesPlan: Multifactorial, minimally improved. Continue attempts at diuresis and continue treatment for presumed bacterial bronchitis. Added bronchodilator therapy and systemic steroids with good improvement. (3) Acute bacterial bronchitis Is this a current diagnosis for this admission?: YesPlan: continue oral abx for usual course (4) Anticoagulation goal of INR 2.0 to 2.5 Is this a current diagnosis for this admission?: YesPlan: Continue home dose of warfarin and monitor INR. (5) Atrial fibrillation Qualifiers: Atrial fibrillation type: chronic Qualified Code(s): I48.2 - Chronic atrial fibrillation Is this a current diagnosis for this admission?: YesPlan: Rate is better controlled with above treatment and added clonidine. Likely worsened by restaurant distress and hypoxia. (6) Hypertension Qualifiers: Hypertension type: essential hypertension Qualified Code(s): I10 - Essential (primary) hypertension Is this a current diagnosis for this admission?: YesPlan: improved with addition of clonidine. - Time Time Spent with patient: 25-34 minutes Anticipated discharge: Home Within: within 24 hours
[2016-07-31] MEDS: TEMAZEPAM 15 MG CAPSULE PO PRN (21:41)
[2016-07-31] MEDS: WARFARIN SODIUM 5 MG TABLET PO SCH (21:42)
[2016-07-31] MEDS ORDERED: NORMAL SALINE 1000 ML 250 ML IV ONE (23:40)
[2016-08-01 05:16] LABS: PROTHROMBIN TIME 46.6 SEC (11.4-15.4)
[2016-08-01] MEDS: DILTIAZEM HCL 240 MG CAPSULE.CR PO SCH ×3 (05:37→22:23)
[2016-08-01 05:41] LABS: ANION GAP 14 (5-19); BLOOD UREA NITROGEN 74 mg/dL (7-20); CALCIUM 9.7 mg/dL (8.4-10.2); CARBON DIOXIDE 25 mmol/L (22-30); CHLORIDE 100 mmol/L (98-107); GLUCOSE 156 mg/dL (75-110); POTASSIUM 3.9 mmol/L (3.6-5.0)
[2016-08-01] MEDS ORDERED: BUMETANIDE 1 MG TABLET PO SCH ×2 (10:00)
[2016-08-01] MEDS: FAMOTIDINE 20 MG TABLET PO SCH ×2 (10:04→22:23)
[2016-08-01] MEDS: DOXYCYCLINE HYCLATE 100 MG TABLET PO SCH (10:04)
[2016-08-01] MEDS: METHYLPREDNISOLONE INJ 40 MG/1 ML SDV IV SCH ×2 (10:04→22:22)
[2016-08-01] MEDS: METOPROLOL SUCCINATE 50 MG TAB.SR.24H PO SCH (11:15)
--- NOTE | 2016-08-01 12:18 | PDOC PROGRESS REPORT ---
Subjective Progress Note for:: 08/01/16 Subjective:: Patient seems to be doing better with gradual improvement. Pt is denying any chest arm or neck discomfort. Patient denying any PND, orthopnea. Patient denied any sustained palpitations, dizziness, syncope, near syncope. Patient denying any fever chills. Patient denying any other significant discomfort. Patient is maintaining atrial fibrillation, heart rate reasonably well controlled. BNP level has gone down. Renal functions are worse. I believe patient suspected to have a kidney ultrasound. Review of systems: Rest review of systems negative. Medications: Medications have been reviewed. Chest x-ray reviewed showed improvement. Physical Exam Vital Signs: Temp Pulse Resp BP Pulse Ox 97.5 F 79 20 104/57 L 100 08/01/16 08:41 08/01/16 08:41 08/01/16 08:41 08/01/16 08:41 08/01/16 08:41 Intake & Output 07/31/16 08/01/16 08/02/16 06:59 06:59 06:59 Intake Total 629 1525 Output Total 100 Balance 629 1425 Weight 75.9 kg 67.1 kg Exam: GENERAL: well-nourished and in no acute distress. Alert and oriented x3 HEAD: Atraumatic, normocephalic. EYES: Pupils equal round and reactive to light, extraocular movements intact, sclera anicteric, conjunctiva are normal. ENT: TMs normal, nares patent, oropharynx clear without exudates. Moist mucous membranes. No oral ulcerations or bleeding gums noted NECK: supple without lymphadenopathy. Trachea is central. No cervical or axillary lymphadenopathy noted. Carotids are 2+, JVD 12 CM LUNGS: Respiration seems nonlabored, no significant accessory muscle action noted. Bibasal fine crackles and rare wheezing noted. No significant dullness noted on percussion. CHEST: Palpation of the chest wall shows no significant chest wall tenderness. No other significant abnormalities noted. 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 ABDOMEN: Soft, no significant tenderness appreciated, normoactive bowel sounds. No guarding, no rebound. No rigidity noted . No masses appreciated. EXTREMITIES: Pedal pulses are 1-2+, no calf tenderness noted. No clubbing or cyanosis.1-2+ pedal edema noted NEUROLOGICAL: Focused neurological exam showed no significant neurologic deficit. Normal speech, no focal weakness appreciated. PSYCH: Normal mood, normal affect. Judgment and insight within normal limits. SKIN: No significant ecchymosis, rash, ulcerations or signs of pruritus noted. MUSCULOSKELETAL EXAM: No significant joint swelling noted. Results Laboratory Results: 08/01/16 04:59 08/01/16 04:59 Sodium 139.0 Potassium 3.9 Chloride 100 Carbon Dioxide 25 Anion Gap 14 BUN 74 H Creatinine 3.00 H Est GFR ( Amer) 24 L Est GFR (Non-Af Amer) 20 L Glucose 156 H Calcium 9.7 07/29/16 07/30/16 07/30/16 19:45 01:45 02:13 Troponin I < 0.012 Cancelled < 0.012 NT-Pro-B Natriuret Pep 07/30/16 07/31/16 08/01/16 06:14 04:48 04:59 Troponin I NT-Pro-B Natriuret Pep 6110 H 8080 H 6920 H Impressions: Chest X-Ray 07/31/16 12:31 IMPRESSION: Improving CHF. Assessment & Plan - Diagnosis (1) CHF (congestive heart failure) Qualifiers: Congestive heart failure type: diastolic Congestive heart failure chronicity: acute on chronic Qualified Code(s): I50.33 - Acute on chronic diastolic (congestive) heart failure Is this a current diagnosis for this admission?: Yes (2) Atrial fibrillation Qualifiers: Atrial fibrillation type: chronic Qualified Code(s): I48.2 - Chronic atrial fibrillation Is this a current diagnosis for this admission?: Yes (3) Hypertension Qualifiers: Hypertension type: essential hypertension Qualified Code(s): I10 - Essential (primary) hypertension Is this a current diagnosis for this admission?: Yes (4) Hypoxemia Is this a current diagnosis for this admission?: Yes (5) Acute respiratory failure Qualifiers: Respiratory failure complication: hypoxia Qualified Code(s): J96.01 - Acute respiratory failure with hypoxia Is this a current diagnosis for this admission?: Yes (6) COPD (chronic obstructive pulmonary disease) Qualifiers: Emphysema type: unspecified Is this a current diagnosis for this admission?: Yes - Notes Notes: CHF: Chest x-ray reviewed shows improvement. CHF seems reasonably well controlled but patient still has elevated JVP therefore predominantly right- sided heart failure. Atrial fibrillation: Rate seems well controlled. Continue with chronic anticoagulation. Hypertension: Blood pressure is satisfactorily controlled. Patient blood pressure has been on the low side. Hypoxemia: Continue oxygen supplementation. Acute respiratory failure: Improved. COPD: Continue bronchodilator therapy and steroid therapy. Continue antibiotics as needed. - Time Time with patient: 15-25 minutes - CODE STATUS was discussed, patient remains full code. Surrogate decision-maker unchanged. Multiple medical problems were addressed.More than 50% of the time spent coordinating care, discussing management plans with involved caregivers. Management plans discussed with involved personnels. Medical decision making was of moderate complexity.
[2016-08-01] MEDS ORDERED: NORMAL SALINE 1000 ML 250 ML IV ONE (13:00)
--- NOTE | 2016-08-01 14:06 | PDOC PROGRESS REPORT ---
Subjective Progress Note for:: 08/01/16 Subjective:: Reason for visit: Follow-up congestive heart failure. Hospital course: Per H&P "NICOLA HEAD is a 81 year old male history of congestive heart failure A. fib presents from his physician's office with concerns of worsening congestive heart failure. Patient was noted to be satting 87% on room air at the office. Patient is not on oxygen at home. 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 weight is unchanged and his BNP actually trended up. He is noncompliant with I/O's. Bumex added and his antiHTN regimen titrated for better control of his BPs and afib rate with good success but at the expense of his renal function. Subjective: He is still breathless with exertion but overall feels much better.. He denies chest pain or palpitations and remains in atrial fibrillation. He denies nausea, vomiting, fever, chills. ROS: per HPI plus a total of 10 systems reviewed, pertinent positives and negatives noted above, remaining systems negative. Physical Exam Vital Signs: Temp Pulse Resp BP Pulse Ox 97.4 F 83 20 120/66 97 08/01/16 13:03 08/01/16 13:03 08/01/16 13:03 08/01/16 13:03 08/01/16 13:03 Intake & Output 07/31/16 08/01/16 08/02/16 06:59 06:59 06:59 Intake Total 629 1525 340 Output Total 100 Balance 629 1425 340 Weight 75.9 kg 67.1 kg EXAM GENERAL: no resp distress; well developed, well nourished; no obese; alert and oriented to person, place, time, situation HEENT: normocephalic, atraumatic; no conjunctival injection, no scleral icterus ; oral mucosa dry; RESPIRATORY:no accessory muscle use, no increased WOB, good air entry bilaterally; resolution of bilateral diffuse wheezes and rhonchi; no bilateral inspiratory crackles, no noa rales CARDIO: JVD to the angle of the jaw; irregularly irregular and rate better controllled; no systolic murmur; no tachycardia GI: soft; nondistended; normal bowel sounds; no rebound, rigidity, guarding; nontender VASCULAR: no pallor; 2+ radial, DP pulse; normal capillary refill EXTREMITIES: no calf tender; no palpable cords in calf; no clubbing, cyanosis ; edema resolved PSYCH: normal affect, normal mood SKIN: warm; moist; no petechiae; no telengectasias; no jaundice; no rash Results Laboratory Results: 08/01/16 04:59 08/01/16 04:59 Sodium 139.0 Potassium 3.9 Chloride 100 Carbon Dioxide 25 Anion Gap 14 BUN 74 H Creatinine 3.00 H Est GFR ( Amer) 24 L Est GFR (Non-Af Amer) 20 L Glucose 156 H Calcium 9.7 07/29/16 07/30/16 07/30/16 19:45 01:45 02:13 Troponin I < 0.012 Cancelled < 0.012 NT-Pro-B Natriuret Pep 07/30/16 07/31/16 08/01/16 06:14 04:48 04:59 Troponin I NT-Pro-B Natriuret Pep 6110 H 8080 H 6920 H Impressions: Chest X-Ray 07/31/16 12:31 IMPRESSION: Improving CHF. Renal Ultrasound 08/01/16 00:00 IMPRESSION: No hydronephrosis Assessment & Plan - Diagnosis (1) CHF exacerbation Qualifiers: Congestive heart failure type: unspecified congestive heart failure type Qualified Code(s): I50.9 - Heart failure, unspecified Is this a current diagnosis for this admission?: YesPlan: Improved. Appreciate cardiology's input. Echo complete, see report in chart but in summary LV ejection fraction is normal however there is 2/4 moderate diastolic dysfunction, RVH with RV dilatation, KENYA, mild MR, mod tricuspid regurg, severe pulm HTN. BNP trending down this morning but at the expense of his renal function which is suddenly worse. he continues to report drop off in urine stream and volume so will order renal u/s to eval for obstruction. start flomax. (2) Acute respiratory failure with hypoxia Is this a current diagnosis for this admission?: YesPlan: Multifactorial, improved down to only 2L and spends a great deal of his time off O2 at his discretion. Added bronchodilator therapy and systemic steroids with good improvement, begin weaning to oral regimen by morning.. (3) Acute bacterial bronchitis Is this a current diagnosis for this admission?: YesPlan: ok to d/c doxycyline at this point, no clinical evidence of persistent infection. (4) Anticoagulation goal of INR 2.0 to 2.5 Is this a current diagnosis for this admission?: YesPlan: INR supraTx today, hold today's dose and resume as needed to maintain INR goal. (5) Atrial fibrillation Qualifiers: Atrial fibrillation type: chronic Qualified Code(s): I48.2 - Chronic atrial fibrillation Is this a current diagnosis for this admission?: YesPlan: Rate is better controlled but will now have to hold his meds due to hypovolemic drop in his BPs, this will likely result in recurrent tachycardia. (6) Hypertension Qualifiers: Hypertension type: essential hypertension Qualified Code(s): I10 - Essential (primary) hypertension Is this a current diagnosis for this admission?: YesPlan: overshot the evangelina now with hypotension. will add gentle bolus and lift his fluid restriction to allow his volume status to increase and with it his BPs. - Time Time Spent with patient: 35 or more minutes
[2016-08-01] MEDS: TAMSULOSIN HCL 0.4 MG CAP.SR.24H PO SCH (17:11)
[2016-08-02 06:17] LABS: HEMATOCRIT 44.5 % (37.9-51.0); HEMOGLOBIN 14.5 g/dL (13.5-17.0); MEAN CORPUSCULAR HEMOGLOBIN 31.4 pg (27.0-33.4); MEAN CORPUSCULAR HGB CONC 32.7 g/dL (32.0-36.0); MEAN CORPUSCULAR VOLUME 96 fl (80-97); RED BLOOD COUNT 4.63 10^6/uL (4.35-5.55); RED CELL DISTRIBUTION WIDTH 15.5 % (11.5-14.0); WHITE BLOOD COUNT 18.4 10^3/uL (4.0-10.5)
[2016-08-02 06:27] LABS: PROTHROMBIN TIME 45.4 SEC (11.4-15.4)
[2016-08-02 06:30] LABS: APPEARANCE,URINE CLOUDY; BILIRUBIN,URINE NEGATIVE (NEGATIVE); GLUCOSE, URINE NEGATIVE (NEGATIVE); KETONES,URINE NEGATIVE (NEGATIVE); LEUKOCYTE ESTERASE,URINE LARGE (NEGATIVE); NITRITE,URINE NEGATIVE (NEGATIVE); PROTEIN,URINE NEGATIVE (NEGATIVE); URINE SPECIFIC GRAVITY 1.011; UROBILINOGEN,URINE NEGATIVE mg/dL (<2.0)
[2016-08-02 06:41] LABS: ANION GAP 11 (5-19); BLOOD UREA NITROGEN 86 mg/dL (7-20); CALCIUM 10.2 mg/dL (8.4-10.2); CARBON DIOXIDE 27 mmol/L (22-30); CHLORIDE 101 mmol/L (98-107); CREATININE RESULT 2.35 mg/dL (0.52-1.25); GLUCOSE 163 mg/dL (75-110); PHOSPHORUS 4.6 mg/dL (2.5-4.5); POTASSIUM 3.5 mmol/L (3.6-5.0); SODIUM 139.4 mmol/L (137-145)
[2016-08-02 06:42] LABS: BASOPHILS % (MANUAL) 0 % (0-2); EOSINOPHILS % (MANUAL) 0 % (0-6); LYMPHOCYTES % (MANUAL) 4 % (13-45); TOTAL CELLS COUNTED 100
[2016-08-02 06:46] LABS: ANISOCYTOSIS SLIGHT; OVALOCYTES SLIGHT; TOXIC GRANULATION SLIGHT
[2016-08-02] MEDS: CEFTRIAXONE 1 GM/D5W RTU 1 GM/50 ML RTUPB IV SCH (08:49)
[2016-08-02] MEDS: METOPROLOL SUCCINATE 50 MG TAB.SR.24H PO SCH (09:22)
[2016-08-02] MEDS: FAMOTIDINE 20 MG TABLET PO SCH ×2 (09:23→22:36)
[2016-08-02] MEDS: METHYLPREDNISOLONE INJ 40 MG/1 ML SDV IV SCH (09:23)
[2016-08-02] MEDS: DILTIAZEM HCL 240 MG CAPSULE.CR PO SCH ×2 (09:23→22:35)
--- NOTE | 2016-08-02 14:07 | PDOC PROGRESS REPORT ---
Subjective Progress Note for:: 08/02/16 Subjective:: Reason for visit: Follow-up congestive heart failure. Hospital course: Per H&P "NICOLA HEAD is a 81 year old male history of congestive heart failure A. fib presents from his physician's office with concerns of worsening congestive heart failure. Patient was noted to be satting 87% on room air at the office. Patient is not on oxygen at home. 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 weight is unchanged and his BNP actually trended up. He is noncompliant with I/O's. Bumex added and his antiHTN regimen titrated for better control of his BPs and afib rate with good success but at the expense of his renal function unfortunately. he now reports darker, more concentrated urine that is foul smelling and has a burning sensation on urination with persistent hesitancy and urgency. His CBC this morning shows a new leukocytosis and urinalysis on catheterized specimen from yesterday shows evidence supporting a urinary tract infection. He has not had a catheter during his hospitalization. Subjective: He states his breathing is back to baseline. He denies chest pain or palpitations and remains in atrial fibrillation. He denies nausea, vomiting , fever, chills. ROS: per HPI plus a total of 10 systems reviewed, pertinent positives and negatives noted above, remaining systems negative. Physical Exam Vital Signs: Temp Pulse Resp BP Pulse Ox 98.3 F 104 H 18 140/68 H 95 08/02/16 08:49 08/02/16 08:49 08/02/16 08:49 08/02/16 08:49 08/02/16 08:49 Intake & Output 08/01/16 08/02/16 08/03/16 06:59 06:59 06:59 Intake Total 1525 1312 Output Total 100 850 Balance 1425 462 Weight 67.1 kg 78.4 kg EXAM GENERAL: no resp distress; well developed, well nourished; no obese; alert and oriented to person, place, time, situation HEENT: normocephalic, atraumatic; no conjunctival injection, no scleral icterus ; oral mucosa dry; RESPIRATORY:no accessory muscle use, no increased WOB, good air entry bilaterally; resolution of bilateral diffuse wheezes and rhonchi; no bilateral inspiratory crackles, no noa rales CARDIO: JVD down to around 3cm; irregularly irregular and rate better controllled; no systolic murmur; borderline tachycardia GI: soft; nondistended; normal bowel sounds; no rebound, rigidity, guarding; nontender VASCULAR: no pallor; 2+ radial, DP pulse; normal capillary refill EXTREMITIES: no calf tender; no palpable cords in calf; no clubbing, cyanosis ; asymmetric left greater than right lower extremity edema PSYCH: normal affect, normal mood SKIN: warm; moist; no petechiae; no telengectasias; no jaundice; no rash Results Laboratory Results: 08/02/16 05:58 08/02/16 05:58 08/02/16 08/02/16 08/02/16 05:45 05:58 05:58 WBC 18.4 H RBC 4.63 Hgb 14.5 Hct 44.5 MCV 96 MCH 31.4 MCHC 32.7 RDW 15.5 H Plt Count 156 Seg Neutrophils % Not Reportable Lymphocytes % Not Reportable Monocytes % Not Reportable Eosinophils % Not Reportable Basophils % Not Reportable Absolute Neutrophils Not Reportable Absolute Lymphocytes Not Reportable Absolute Monocytes Not Reportable Absolute Eosinophils Not Reportable Absolute Basophils Not Reportable Sodium 139.4 Potassium 3.5 L Chloride 101 Carbon Dioxide 27 Anion Gap 11 BUN 86 H Creatinine 2.35 H Est GFR ( Amer) 32 L Est GFR (Non-Af Amer) 27 L Glucose 163 H Calcium 10.2 Phosphorus 4.6 H Magnesium 2.0 Urine Color YELLOW Urine Appearance CLOUDY Urine pH 5.0 Ur Specific [place] 1.011 Urine Protein NEGATIVE Urine Glucose (UA) NEGATIVE Urine Ketones NEGATIVE Urine Blood LARGE H Urine Nitrite NEGATIVE Ur Leukocyte Esterase LARGE H Urine WBC (Auto) >182 Urine RBC (Auto) 63 07/29/16 07/30/16 07/30/16 19:45 01:45 02:13 Troponin I < 0.012 Cancelled < 0.012 NT-Pro-B Natriuret Pep 07/30/16 07/31/16 08/01/16 06:14 04:48 04:59 Troponin I NT-Pro-B Natriuret Pep 6110 H 8080 H 6920 H 08/02/16 05:58 Troponin I NT-Pro-B Natriuret Pep 4780 H Impressions: Renal Ultrasound 08/01/16 00:00 IMPRESSION: No hydronephrosis Assessment & Plan - Diagnosis (1) CHF exacerbation Qualifiers: Congestive heart failure type: unspecified congestive heart failure type Qualified Code(s): I50.9 - Heart failure, unspecified Is this a current diagnosis for this admission?: YesPlan: Improved. Appreciate cardiology's input. Echo complete, see report in chart but in summary LV ejection fraction is normal however there is 2/4 moderate diastolic dysfunction, RVH with RV dilatation, KENYA, mild MR, mod tricuspid regurg, severe pulm HTN. BNP trending down this morning. He seems to be back to baseline. (2) Acute respiratory failure with hypoxia Is this a current diagnosis for this admission?: YesPlan: Multifactorial, improved down to only 2L and spends a great deal of his time off O2 at his discretion. Added bronchodilator therapy and systemic steroids with good improvement, wean to an oral regimen. (3) Acute bacterial bronchitis Is this a current diagnosis for this admission?: YesPlan: As above, no clinical evidence of persistent infection. (4) Anticoagulation goal of INR 2.0 to 2.5 Is this a current diagnosis for this admission?: YesPlan: INR supraTx again today, hold today's dose and resume as needed to maintain INR goal. (5) Atrial fibrillation Qualifiers: Atrial fibrillation type: chronic Qualified Code(s): I48.2 - Chronic atrial fibrillation Is this a current diagnosis for this admission?: YesPlan: Rate is better controlled but continue to hold his meds per usual parameters, this will likely result in recurrent tachycardia. (6) Hypertension Qualifiers: Hypertension type: essential hypertension Qualified Code(s): I10 - Essential (primary) hypertension Is this a current diagnosis for this admission?: YesPlan: Titrate his regimen as clinically needed (7) UTI (urinary tract infection) Qualifiers: Urinary tract infection type: acute cystitis Hematuria presence: without hematuria Qualified Code(s): N30.00 - Acute cystitis without hematuria Is this a current diagnosis for this admission?: YesPlan: Add Rocephin and ask the lab culture of the sample sent yesterday, it is a sterile catheterized sample. - Time Time Spent with patient: 25-34 minutes Medications reviewed and adjusted accordingly: Yes Anticipated discharge: Home Within: within 72 hours
[2016-08-02] MEDS: TAMSULOSIN HCL 0.4 MG CAP.SR.24H PO SCH (18:17)
--- NOTE | 2016-08-02 20:05 | PDOC PROGRESS REPORT ---
Subjective Progress Note for:: 08/02/16 Subjective:: Patient seems to be doing better with gradual improvement. Pt is denying any chest arm or neck discomfort. Patient denying any PND, orthopnea. Patient denied any sustained palpitations, dizziness, syncope, near syncope. Patient denying any fever chills. Patient denying any other significant discomfort. Patient is maintaining atrial fibrillation, heart rate reasonably well controlled. BNP level has gone down. Renal functions have is stabilized and improved. Patient has noted some UTI-type symptoms. Review of systems: Rest review of systems negative. Medications: Medications have been reviewed. Chest x-ray reviewed showed improvement. Physical Exam Vital Signs: Temp Pulse Resp BP Pulse Ox 97.1 F 78 20 129/70 H 91 L 08/02/16 15:10 08/02/16 19:00 08/02/16 15:10 08/02/16 15:10 08/02/16 15:10 Intake & Output 08/01/16 08/02/16 08/03/16 06:59 06:59 06:59 Intake Total 1525 1312 580 Output Total 100 850 300 Balance 1425 462 280 Weight 67.1 kg 78.4 kg Exam: GENERAL: well-nourished and in no acute distress. Alert and oriented x3 HEAD: Atraumatic, normocephalic. EYES: Pupils equal round and reactive to light, extraocular movements intact, sclera anicteric, conjunctiva are normal. ENT: TMs normal, nares patent, oropharynx clear without exudates. Moist mucous membranes. No oral ulcerations or bleeding gums noted NECK: supple without lymphadenopathy. Trachea is central. No cervical or axillary lymphadenopathy noted. Carotids are 2+, JVD 12 CM LUNGS: Respiration seems nonlabored, no significant accessory muscle action noted. Bilateral fine crackles and mild wheezing noted. CHEST: Palpation of the chest wall shows no significant chest wall tenderness. No other significant abnormalities noted. 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 ABDOMEN: Soft, no significant tenderness appreciated, normoactive bowel sounds. No guarding, no rebound. No rigidity noted . No masses appreciated. EXTREMITIES: Pedal pulses are 1-2+, no calf tenderness noted. No clubbing or cyanosis.trace to 1+ pedal edema noted NEUROLOGICAL: Focused neurological exam showed no significant neurologic deficit. Normal speech, no focal weakness appreciated. PSYCH: Normal mood, normal affect. Judgment and insight within normal limits. SKIN: No significant ecchymosis, rash, ulcerations or signs of pruritus noted. MUSCULOSKELETAL EXAM: No significant joint swelling noted. Results Laboratory Results: 08/02/16 05:58 08/02/16 05:58 08/02/16 08/02/16 08/02/16 05:45 05:58 05:58 WBC 18.4 H RBC 4.63 Hgb 14.5 Hct 44.5 MCV 96 MCH 31.4 MCHC 32.7 RDW 15.5 H Plt Count 156 Seg Neutrophils % Not Reportable Lymphocytes % Not Reportable Monocytes % Not Reportable Eosinophils % Not Reportable Basophils % Not Reportable Absolute Neutrophils Not Reportable Absolute Lymphocytes Not Reportable Absolute Monocytes Not Reportable Absolute Eosinophils Not Reportable Absolute Basophils Not Reportable Sodium 139.4 Potassium 3.5 L Chloride 101 Carbon Dioxide 27 Anion Gap 11 BUN 86 H Creatinine 2.35 H Est GFR ( Amer) 32 L Est GFR (Non-Af Amer) 27 L Glucose 163 H Calcium 10.2 Phosphorus 4.6 H Magnesium 2.0 Urine Color YELLOW Urine Appearance CLOUDY Urine pH 5.0 Ur Specific [place] 1.011 Urine Protein NEGATIVE Urine Glucose (UA) NEGATIVE Urine Ketones NEGATIVE Urine Blood LARGE H Urine Nitrite NEGATIVE Ur Leukocyte Esterase LARGE H Urine WBC (Auto) >182 Urine RBC (Auto) 63 07/29/16 07/30/16 07/30/16 19:45 01:45 02:13 Troponin I < 0.012 Cancelled < 0.012 NT-Pro-B Natriuret Pep 07/30/16 07/31/16 08/01/16 06:14 04:48 04:59 Troponin I NT-Pro-B Natriuret Pep 6110 H 8080 H 6920 H 08/02/16 05:58 Troponin I NT-Pro-B Natriuret Pep 4780 H Impressions: Chest X-Ray 07/31/16 12:31 IMPRESSION: Improving CHF. Renal Ultrasound 08/01/16 00:00 IMPRESSION: No hydronephrosis Assessment & Plan - Diagnosis (1) CHF (congestive heart failure) Qualifiers: Congestive heart failure type: diastolic Congestive heart failure chronicity: acute on chronic Qualified Code(s): I50.33 - Acute on chronic diastolic (congestive) heart failure Is this a current diagnosis for this admission?: Yes (2) Atrial fibrillation Qualifiers: Atrial fibrillation type: chronic Qualified Code(s): I48.2 - Chronic atrial fibrillation Is this a current diagnosis for this admission?: Yes (3) Hypertension Qualifiers: Hypertension type: essential hypertension Qualified Code(s): I10 - Essential (primary) hypertension Is this a current diagnosis for this admission?: Yes (4) Hypoxemia Is this a current diagnosis for this admission?: Yes (5) Acute respiratory failure Qualifiers: Respiratory failure complication: hypoxia Qualified Code(s): J96.01 - Acute respiratory failure with hypoxia Is this a current diagnosis for this admission?: Yes (6) COPD (chronic obstructive pulmonary disease) Qualifiers: Emphysema type: unspecified Is this a current diagnosis for this admission?: Yes - Notes Notes: CHF: This is felt predominantly right-sided heart failure with contribution from diastolic dysfunction. Continue with oxygen supplementation, bronchodilator therapy. Atrial fibrillation: Rate is well controlled. Patient on chronic anticoagulation. Hypertension: Currently blood pressure stable continue current management. Hypoxemia: Continue oxygen supplementation. COPD: Severe. Patient will benefit from oxygen supplementation if he can be qualified. Acute respiratory failure: Improved Patient has shown improvement in general condition, BNP level, also now renal functions. Patient was encouraged to increase activity. - Time Time with patient: 15-25 minutes - CODE STATUS was discussed, patient remains full code. Surrogate decision-maker unchanged. Multiple medical problems were addressed.More than 50% of the time spent coordinating care, discussing management plans with involved caregivers. Management plans discussed with involved personnels. Medical decision making was of moderate complexity. Medications reviewed and adjusted accordingly: Yes
[2016-08-03 05:23] LABS: HEMATOCRIT 42.6 % (37.9-51.0); HEMOGLOBIN 14.4 g/dL (13.5-17.0); HGB HCT DIFFERENCE 0.6; MEAN CORPUSCULAR HEMOGLOBIN 32.3 pg (27.0-33.4); MEAN CORPUSCULAR HGB CONC 33.7 g/dL (32.0-36.0); MEAN CORPUSCULAR VOLUME 96 fl (80-97); RED BLOOD COUNT 4.45 10^6/uL (4.35-5.55); RED CELL DISTRIBUTION WIDTH 15.7 % (11.5-14.0); WHITE BLOOD COUNT 16.6 10^3/uL (4.0-10.5)
[2016-08-03 05:38] LABS: ANION GAP 12 (5-19); BLOOD UREA NITROGEN 88 mg/dL (7-20); CALCIUM 10.2 mg/dL (8.4-10.2); CARBON DIOXIDE 27 mmol/L (22-30); CHLORIDE 100 mmol/L (98-107); CREATININE RESULT 1.79 mg/dL (0.52-1.25); GLUCOSE 149 mg/dL (75-110); POTASSIUM 3.4 mmol/L (3.6-5.0); SODIUM 138.8 mmol/L (137-145)
[2016-08-03 06:12] LABS: BASOPHILS % (MANUAL) 0 % (0-2); EOSINOPHILS % (MANUAL) 0 % (0-6); LYMPHOCYTES % (MANUAL) 2 % (13-45); TOTAL CELLS COUNTED 100
[2016-08-03 06:13] LABS: TOXIC GRANULATION 1+
[2016-08-03 06:16] LABS: ANISOCYTOSIS 1+; BURR CELLS SLIGHT; OVALOCYTES 1+; POIKILOCYTOSIS 1+
[2016-08-03] MEDS: CEFTRIAXONE 1 GM/D5W RTU 1 GM/50 ML RTUPB IV SCH (09:44)
[2016-08-03] MEDS: METOPROLOL SUCCINATE 50 MG TAB.SR.24H PO SCH (09:45)
[2016-08-03] MEDS: PREDNISONE 20 MG TABLET PO SCH (09:45)
[2016-08-03] MEDS: FAMOTIDINE 20 MG TABLET PO SCH ×2 (09:45→21:24)
[2016-08-03] MEDS: DILTIAZEM HCL 240 MG CAPSULE.CR PO SCH ×2 (09:46→21:24)
[2016-08-03] MEDS ORDERED: BISACODYL 5 MG TABEC PO PRN (11:11)
--- NOTE | 2016-08-03 11:59 | PDOC PROGRESS REPORT ---
Subjective Progress Note for:: 08/03/16 Subjective:: Patient seems to be doing better with gradual improvement. Patient seems comfortable. He was agitated last night. Currently resting comfortably. Pt is denying any chest arm or neck discomfort. Patient denying any PND, orthopnea. Patient denied any sustained palpitations, dizziness, syncope, near syncope. Patient denying any fever chills. Patient denying any other significant discomfort. Patient is maintaining atrial fibrillation, heart rate reasonably well controlled. Review of systems: Rest review of systems negative. Medications: Medications have been reviewed. Physical Exam Vital Signs: Temp Pulse Resp BP Pulse Ox 97.5 F 91 18 139/78 H 95 08/03/16 08:05 08/03/16 08:05 08/03/16 05:03 08/03/16 08:05 08/03/16 08:05 Intake & Output 08/02/16 08/03/16 08/04/16 06:59 06:59 06:59 Intake Total 1312 900 Output Total 850 625 Balance 462 275 Weight 78.4 kg 79.1 kg Exam: GENERAL: well-nourished and in no acute distress. Alert and oriented x3, with intermittent confusion. HEAD: Atraumatic, normocephalic. EYES: Pupils equal round and reactive to light, extraocular movements intact, sclera anicteric, conjunctiva are normal. ENT: TMs normal, nares patent, oropharynx clear without exudates. Moist mucous membranes. No oral ulcerations or bleeding gums noted NECK: supple without lymphadenopathy. Trachea is central. No cervical or axillary lymphadenopathy noted. Carotids are 2+, JVD 10-12 CM LUNGS: Respiration seems nonlabored, no significant accessory muscle action noted. Bilateral mild wheezing and bilateral basal crackles noted.. CHEST: Palpation of the chest wall shows no significant chest wall tenderness. No other significant abnormalities noted. 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 ABDOMEN: Soft, no significant tenderness appreciated, normoactive bowel sounds. No guarding, no rebound. No rigidity noted . No masses appreciated. EXTREMITIES: Pedal pulses are 1-2+, no calf tenderness noted. No clubbing or cyanosis.trace to 1+ pedal edema noted NEUROLOGICAL: Focused neurological exam showed no significant neurologic deficit. Normal speech, no focal weakness appreciated. PSYCH: Normal mood, normal affect. Judgment and insight within normal limits. SKIN: No significant ecchymosis, rash, ulcerations or signs of pruritus noted. MUSCULOSKELETAL EXAM: No significant joint swelling noted. Results Laboratory Results: 08/03/16 04:16 08/03/16 04:16 08/03/16 08/03/16 04:16 04:16 WBC 16.6 H RBC 4.45 Hgb 14.4 Hct 42.6 MCV 96 MCH 32.3 MCHC 33.7 RDW 15.7 H Plt Count 148 L Seg Neutrophils % Not Reportable Lymphocytes % Not Reportable Monocytes % Not Reportable Eosinophils % Not Reportable Basophils % Not Reportable Absolute Neutrophils Not Reportable Absolute Lymphocytes Not Reportable Absolute Monocytes Not Reportable Absolute Eosinophils Not Reportable Absolute Basophils Not Reportable Sodium 138.8 Potassium 3.4 L Chloride 100 Carbon Dioxide 27 Anion Gap 12 BUN 88 H Creatinine 1.79 H Est GFR ( Amer) 44 L Est GFR (Non-Af Amer) 37 L Glucose 149 H Calcium 10.2 Magnesium 2.0 07/29/16 07/30/16 07/30/16 19:45 01:45 02:13 Troponin I < 0.012 Cancelled < 0.012 NT-Pro-B Natriuret Pep 07/30/16 07/31/16 08/01/16 06:14 04:48 04:59 Troponin I NT-Pro-B Natriuret Pep 6110 H 8080 H 6920 H 08/02/16 05:58 Troponin I NT-Pro-B Natriuret Pep 4780 H Impressions: Chest X-Ray 07/31/16 12:31 IMPRESSION: Improving CHF. Renal Ultrasound 08/01/16 00:00 IMPRESSION: No hydronephrosis Assessment & Plan - Diagnosis (1) CHF (congestive heart failure) Qualifiers: Congestive heart failure type: diastolic Congestive heart failure chronicity: acute on chronic Qualified Code(s): I50.33 - Acute on chronic diastolic (congestive) heart failure Is this a current diagnosis for this admission?: Yes (2) Atrial fibrillation Qualifiers: Atrial fibrillation type: chronic Qualified Code(s): I48.2 - Chronic atrial fibrillation Is this a current diagnosis for this admission?: Yes (3) Hypertension Qualifiers: Hypertension type: essential hypertension Qualified Code(s): I10 - Essential (primary) hypertension Is this a current diagnosis for this admission?: Yes (4) Hypoxemia Is this a current diagnosis for this admission?: Yes (5) Acute respiratory failure Qualifiers: Respiratory failure complication: hypoxia Qualified Code(s): J96.01 - Acute respiratory failure with hypoxia Is this a current diagnosis for this admission?: Yes (6) COPD (chronic obstructive pulmonary disease) Qualifiers: Emphysema type: unspecified Is this a current diagnosis for this admission?: Yes - Notes Notes: Patient noted to be generally is stable with improvement in CHF. As regards atrial fibrillation, this is chronic heart rate is well controlled. Blood pressure is now noted to be well controlled. Patient is on oxygen supplementation. COPD seems improved with less wheezing. Patient does have predominantly right-sided heart failure and also significant pulmonary hypertension therefore may need to be evaluated for oxygen supplementation. Patient does give a history of sleep apnea and has been on BiPAP therapy in the past and resumption of this therapy may be helpful. Discussed with patient's family member. - Time Time with patient: Greater than 35 minutes - CODE STATUS was discussed, patient remains full code. Surrogate decision-maker unchanged. Multiple medical problems were addressed.More than 50% of the time spent coordinating care, discussing management plans with involved caregivers. Management plans discussed with involved personnels. Medical decision making was of moderate complexity. Medications reviewed and adjusted accordingly: Yes
--- NOTE | 2016-08-03 12:54 | PDOC PROGRESS REPORT ---
Subjective Progress Note for:: 08/03/16 Subjective:: Reason for visit: Follow-up congestive heart failure. Hospital course: Per H&P "NICOLA HEAD is a 81 year old male history of congestive heart failure A. fib presents from his physician's office with concerns of worsening congestive heart failure. Patient was noted to be satting 87% on room air at the office. Patient is not on oxygen at home. 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 weight is unchanged and his BNP actually trended up. He is noncompliant with I/O's. Bumex added and his antiHTN regimen titrated for better control of his BPs and afib rate with good success but at the expense of his renal function unfortunately. he now reports darker, more concentrated urine that is foul smelling and has a burning sensation on urination with persistent hesitancy and urgency. His CBC this morning shows a new leukocytosis and urinalysis on catheterized specimen shows evidence supporting a urinary tract infection. He has not had a catheter during his hospitalization. Subjective: his breathing remained stable and close to baseline. His family reports some intermittent confusion since last night, states he really didn't sleep last night and is doing more of that today. Incidentally noted are apneic episodes while asleep and his reports of been going on for years. He underwent a sleep study and was qualified for CPAP but was intolerant of the machine He denies chest pain or palpitations and remains in atrial fibrillation. He denies nausea, vomiting, fever, chills. Family also reports no bowel movement for the last 3 days. ROS: per HPI plus a total of 10 systems reviewed, pertinent positives and negatives noted above, remaining systems negative. Physical Exam Vital Signs: Temp Pulse Resp BP Pulse Ox 97.5 F 84 16 144/77 H 97 08/03/16 11:52 08/03/16 11:52 08/03/16 11:52 08/03/16 11:52 08/03/16 11:52 Intake & Output 08/02/16 08/03/16 08/04/16 06:59 06:59 06:59 Intake Total 1312 900 Output Total 850 051 Balance 462 275 Weight 78.4 kg 79.1 kg EXAM GENERAL: no resp distress; well developed, well nourished; no obese; more lethargic and sleeping for most of my exam HEENT: normocephalic, atraumatic; no conjunctival injection, no scleral icterus ; oral mucosa dry; RESPIRATORY:no accessory muscle use, no increased WOB, good air entry bilaterally; resolution of bilateral diffuse wheezes and rhonchi; no bilateral inspiratory crackles, no noa rales CARDIO: JVD down to around 1cm; irregularly irregular and rate better controllled; no systolic murmur; borderline tachycardia GI: soft; nondistended; normal bowel sounds; no rebound, rigidity, guarding; nontender VASCULAR: no pallor; 2+ radial, DP pulse; normal capillary refill EXTREMITIES: no calf tender; no palpable cords in calf; no clubbing, cyanosis ; asymmetric left greater than right lower extremity edema improved from yesterday PSYCH: normal affect, normal mood SKIN: warm; moist; no petechiae; no telengectasias; no jaundice; no rash Results Laboratory Results: 08/03/16 04:16 08/03/16 04:16 08/03/16 08/03/16 04:16 04:16 WBC 16.6 H RBC 4.45 Hgb 14.4 Hct 42.6 MCV 96 MCH 32.3 MCHC 33.7 RDW 15.7 H Plt Count 148 L Seg Neutrophils % Not Reportable Lymphocytes % Not Reportable Monocytes % Not Reportable Eosinophils % Not Reportable Basophils % Not Reportable Absolute Neutrophils Not Reportable Absolute Lymphocytes Not Reportable Absolute Monocytes Not Reportable Absolute Eosinophils Not Reportable Absolute Basophils Not Reportable Sodium 138.8 Potassium 3.4 L Chloride 100 Carbon Dioxide 27 Anion Gap 12 BUN 88 H Creatinine 1.79 H Est GFR ( Amer) 44 L Est GFR (Non-Af Amer) 37 L Glucose 149 H Calcium 10.2 Magnesium 2.0 07/29/16 07/30/16 07/30/16 19:45 01:45 02:13 Troponin I < 0.012 Cancelled < 0.012 NT-Pro-B Natriuret Pep 07/30/16 07/31/16 08/01/16 06:14 04:48 04:59 Troponin I NT-Pro-B Natriuret Pep 6110 H 8080 H 6920 H 08/02/16 05:58 Troponin I NT-Pro-B Natriuret Pep 4780 H Impressions: Renal Ultrasound 08/01/16 00:00 IMPRESSION: No hydronephrosis Assessment & Plan - Diagnosis (1) CHF exacerbation Qualifiers: Congestive heart failure type: unspecified congestive heart failure type Qualified Code(s): I50.9 - Heart failure, unspecified Is this a current diagnosis for this admission?: YesPlan: Stable. Appreciate cardiology's input. Echo complete, see report in chart but in summary LV ejection fraction is normal however there is 2/4 moderate diastolic dysfunction, RVH with RV dilatation, KENYA, mild MR, mod tricuspid regurg, severe pulm HTN. BNP trending down. He seems to be back to baseline. (2) Acute respiratory failure with hypoxia Is this a current diagnosis for this admission?: YesPlan: Multifactorial, improved down to only 2L and spends a great deal of his time off O2 at his discretion. Added bronchodilator therapy and systemic steroids with good improvement, wean to an oral regimen. Check overnight oximetry and room air sat daily to see if he qualifies for home O2. (3) Anticoagulation goal of INR 2.0 to 2.5 Is this a current diagnosis for this admission?: YesPlan: INR supraTx again today, hold today's dose and resume as needed to maintain INR goal. (4) Atrial fibrillation Qualifiers: Atrial fibrillation type: chronic Qualified Code(s): I48.2 - Chronic atrial fibrillation Is this a current diagnosis for this admission?: YesPlan: Rate is better controlled but continue holding parameters, monitor for recurrent tachycardia. (5) Hypertension Qualifiers: Hypertension type: essential hypertension Qualified Code(s): I10 - Essential (primary) hypertension Is this a current diagnosis for this admission?: YesPlan: Reasonably well controlled. Titrate his regimen as clinically needed. (6) UTI (urinary tract infection) Qualifiers: Urinary tract infection type: acute cystitis Hematuria presence: without hematuria Qualified Code(s): N30.00 - Acute cystitis without hematuria Is this a current diagnosis for this admission?: YesPlan: Add Rocephin and asked the lab to culture of the sample sent but it seems the sample was discarded. he seems to be improving so will continue usual course. (7) Constipation Qualifiers: Constipation type: unspecified constipation type Qualified Code(s): K59.00 - Constipation, unspecified Is this a current diagnosis for this admission?: YesPlan: add bowel regimen and monitor for effect. (8) Acute metabolic encephalopathy Is this a current diagnosis for this admission?: YesPlan: Multifactorial; likely related to azotemia plus hypoxia as he is noncompliant with his O2, CO2 retention as he is noncompliant with CPAP and effects of the infection. (9) Acute bacterial bronchitis Is this a current diagnosis for this admission?: YesPlan: As above, no clinical evidence of persistent infection. - Time Time Spent with patient: 25-34 minutes
[2016-08-03] MEDS: SENNOSIDES/DOCUSATE 8.6-50 MG 1 EACH TABLET PO SCH (17:26)
[2016-08-03] MEDS: TAMSULOSIN HCL 0.4 MG CAP.SR.24H PO SCH (17:27)
[2016-08-04 06:16] LABS: HEMATOCRIT 44.4 % (37.9-51.0); HEMOGLOBIN 14.5 g/dL (13.5-17.0); HGB HCT DIFFERENCE -0.9; MEAN CORPUSCULAR HEMOGLOBIN 31.5 pg (27.0-33.4); MEAN CORPUSCULAR HGB CONC 32.6 g/dL (32.0-36.0); MEAN CORPUSCULAR VOLUME 97 fl (80-97); RED CELL DISTRIBUTION WIDTH 15.2 % (11.5-14.0); WHITE BLOOD COUNT 19.4 10^3/uL (4.0-10.5)
[2016-08-04 06:40] LABS: BAND NEUTROPHILS % (MANUAL) 2 % (3-5); BASOPHILS % (MANUAL) 0 % (0-2); EOSINOPHILS % (MANUAL) 0 % (0-6); LYMPHOCYTES % (MANUAL) 2 % (13-45); TOTAL CELLS COUNTED 100
[2016-08-04 06:41] LABS: TOXIC GRANULATION SLIGHT
[2016-08-04 06:43] LABS: OVALOCYTES SLIGHT
[2016-08-04 06:44] LABS: ANISOCYTOSIS SLIGHT
[2016-08-04 06:45] LABS: ANION GAP 14 (5-19); BLOOD UREA NITROGEN 82 mg/dL (7-20); CALCIUM 10.1 mg/dL (8.4-10.2); CARBON DIOXIDE 27 mmol/L (22-30); CHLORIDE 100 mmol/L (98-107); CREATININE RESULT 1.54 mg/dL (0.52-1.25); GLUCOSE 141 mg/dL (75-110); POTASSIUM 3.8 mmol/L (3.6-5.0); SODIUM 140.6 mmol/L (137-145)
[2016-08-04] MEDS: CEFTRIAXONE 1 GM/D5W RTU 1 GM/50 ML RTUPB IV SCH (09:46)
[2016-08-04] MEDS: METOPROLOL SUCCINATE 50 MG TAB.SR.24H PO SCH (09:47)
[2016-08-04] MEDS: DILTIAZEM HCL 240 MG CAPSULE.CR PO SCH ×2 (09:48→23:08)
[2016-08-04] MEDS: PREDNISONE 20 MG TABLET PO SCH (09:48)
[2016-08-04] MEDS: FAMOTIDINE 20 MG TABLET PO SCH ×2 (09:48→23:09)
[2016-08-04] MEDS: SENNOSIDES/DOCUSATE 8.6-50 MG 1 EACH TABLET PO SCH ×2 (09:48→17:23)
[2016-08-04] MEDS ORDERED: ALBUTEROL SULFATE 0.083% NEB 2.5 MG/3 ML AMPUL NEB PRN (11:26)
--- NOTE | 2016-08-04 11:41 | PDOC PROGRESS REPORT ---
Subjective Progress Note for:: 08/04/16 Subjective:: Reason for visit: Follow-up congestive heart failure. Hospital course: Per H&P "NICOLA HEAD is a 81 year old male history of congestive heart failure A. fib presents from his physician's office with concerns of worsening congestive heart failure. Patient was noted to be satting 87% on room air at the office. Patient is not on oxygen at home. 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 weight is unchanged and his BNP actually trended up. He is noncompliant with I/O's. Bumex added and his antiHTN regimen titrated for better control of his BPs and afib rate with good success but at the expense of his renal function unfortunately. cessation of the diuretics and lifting of the fluid restriction has resulted in good improvement of his Scr but still azotemic with elevated BUN. he reported darker, more concentrated urine that is foul smelling and has a burning sensation on urination with persistent hesitancy and urgency. His CBC shows a leukocytosis and urinalysis on catheterized specimen shows evidence supporting a urinary tract infection. He has not had a catheter during his hospitalization. lab discarded sample prior to culture. Subjective: His family continues to report some intermittent confusion starting Friday night, talking out of his head at times and seems generally more lethargic in general. Incidentally noted are apneic episodes while asleep and his reports this has been going on for years. He underwent a sleep study and was qualified for CPAP but was intolerant of the machine. He denies chest pain or palpitations and remains in rate controlled atrial fibrillation. He denies nausea, vomiting, fever, chills. Family also reports no bowel movement for the last 4 days now. He is once again wheezing. ROS: per HPI plus a total of 10 systems reviewed, pertinent positives and negatives noted above, remaining systems negative. Physical Exam Vital Signs: Temp Pulse Resp BP Pulse Ox 98.2 F 89 18 140/85 H 89 L 08/04/16 03:58 08/04/16 07:00 08/04/16 03:58 08/04/16 03:58 08/04/16 04:05 Pulse Oximeter Nocturnal Start: 08/03/16 11: 12 Freq: Status: Active Document 08/04/16 04:05 [facility] (Rec: 08/04/16 04:39 [email or web address]) Nocturnal Pulse Oximetry Equipment Usage Equipment in Use Oxygen Delivery Method (includes room Room Air air) O2 Sat by Pulse Oximetry (92-100) 89 Continuous SpO2 Machine # 3 Intake & Output 08/03/16 08/04/16 08/05/16 06:59 06:59 06:59 Intake Total 900 1005 Output Total 625 475 Balance 275 530 Weight 79.1 kg 80.2 kg EXAM GENERAL: no resp distress; well developed, well nourished; no obese; lethargic , will awaken but slow to come around HEENT: normocephalic, atraumatic; no conjunctival injection, no scleral icterus ; oral mucosa dry; RESPIRATORY:no accessory muscle use, no increased WOB, good air entry bilaterally; return of bilateral diffuse wheezes and rhonchi; bilateral inspiratory crackles but no noa rales CARDIO: JVD resolved; irregularly irregular and rate controllled; no systolic murmur; no tachycardia GI: soft; nondistended; normal bowel sounds; no rebound, rigidity, guarding; nontender VASCULAR: no pallor; 2+ radial, DP pulse; normal capillary refill EXTREMITIES: no calf tender; no palpable cords in calf; no clubbing, cyanosis ; asymmetric left greater than right lower extremity edema PSYCH: normal affect, normal mood SKIN: warm; moist; no petechiae; no telengectasias; no jaundice; no rash Results Laboratory Results: 08/04/16 05:10 08/04/16 05:10 08/04/16 08/04/16 05:10 05:10 WBC 19.4 H RBC 4.60 Hgb 14.5 Hct 44.4 MCV 97 MCH 31.5 MCHC 32.6 RDW 15.2 H Plt Count 165 Seg Neutrophils % Not Reportable Lymphocytes % Not Reportable Monocytes % Not Reportable Eosinophils % Not Reportable Basophils % Not Reportable Absolute Neutrophils Not Reportable Absolute Lymphocytes Not Reportable Absolute Monocytes Not Reportable Absolute Eosinophils Not Reportable Absolute Basophils Not Reportable Sodium 140.6 Potassium 3.8 Chloride 100 Carbon Dioxide 27 Anion Gap 14 BUN 82 H Creatinine 1.54 H Est GFR ( Amer) 53 L Est GFR (Non-Af Amer) 44 L Glucose 141 H Calcium 10.1 Magnesium 2.0 07/29/16 07/30/16 07/30/16 19:45 01:45 02:13 Troponin I < 0.012 Cancelled < 0.012 NT-Pro-B Natriuret Pep 07/30/16 07/31/16 08/01/16 06:14 04:48 04:59 Troponin I NT-Pro-B Natriuret Pep 6110 H 8080 H 6920 H 08/02/16 05:58 Troponin I NT-Pro-B Natriuret Pep 4780 H Impressions: Chest X-Ray 08/04/16 00:00 IMPRESSION: Resolution of the congestive failure pattern. Assessment & Plan - Diagnosis (1) CHF exacerbation Qualifiers: Congestive heart failure type: unspecified congestive heart failure type Qualified Code(s): I50.9 - Heart failure, unspecified Is this a current diagnosis for this admission?: YesPlan: Stable. Appreciate cardiology's input. Echo complete, see report in chart but in summary LV ejection fraction is normal however there is 2/4 moderate diastolic dysfunction, RVH with RV dilatation, KENYA, mild MR, mod tricuspid regurg, severe pulm HTN. BNP trending down. He seems to be back to baseline in this regard. (2) COPD (chronic obstructive pulmonary disease) Qualifiers: Emphysema type: unspecified Is this a current diagnosis for this admission?: YesPlan: bronchospasm has returned in spite of oral prednisone 40mg daily. will have to resume albuterol nebs and monitor HR and his response. (3) Acute respiratory failure with hypoxia Is this a current diagnosis for this admission?: YesPlan: Multifactorial, improved down to only 2L and spends a great deal of his time off O2 at his discretion. Added bronchodilator therapy and systemic steroids with good improvement but albuterol worsened his tachycardia and the atrovent worsened his urine retention. 89% on RA this morning while lying in bed. f/u on overnight oximetry results and room air sat daily to see if he qualifies for home O2. (4) Anticoagulation goal of INR 2.0 to 2.5 Is this a current diagnosis for this admission?: YesPlan: ck INR in am and resume coumadin when able. (5) Atrial fibrillation Qualifiers: Atrial fibrillation type: chronic Qualified Code(s): I48.2 - Chronic atrial fibrillation Is this a current diagnosis for this admission?: YesPlan: Rate controlled, monitor for recurrent tachycardia with addition of albuterol nebs. (6) Hypertension Qualifiers: Hypertension type: essential hypertension Qualified Code(s): I10 - Essential (primary) hypertension Is this a current diagnosis for this admission?: YesPlan: Reasonably well controlled. Titrate his regimen as clinically needed. (7) UTI (urinary tract infection) Qualifiers: Urinary tract infection type: acute cystitis Hematuria presence: without hematuria Qualified Code(s): N30.00 - Acute cystitis without hematuria Is this a current diagnosis for this admission?: YesPlan: Added Rocephin and asked the lab to culture of the sample sent but it seems the sample was discarded. unfortunately his leukocytosis is worsening, will send repeat sample and blood cultures. (8) Constipation Qualifiers: Constipation type: unspecified constipation type Qualified Code(s): K59.00 - Constipation, unspecified Is this a current diagnosis for this admission?: YesPlan: no response yet to added bowel regimen, give lactulose x1 and monitor for effect. (9) Acute metabolic encephalopathy Is this a current diagnosis for this admission?: YesPlan: waxing and waning course. Multifactorial; likely related to azotemia plus hypoxia as he is noncompliant with his O2, CO2 retention as he is noncompliant with CPAP and effects of the infection. (10) Acute bacterial bronchitis Is this a current diagnosis for this admission?: YesPlan: previously on doxy and seemed to resolve. recurrent bronchospasm today, unclear if simple COPD exac or recurrent bacterial bronchitis. already on rocephin and steroids. may need to broaden coverage to cover atypicals and pseudomonas if fails to improve. - Time Time Spent with patient: 35 or more minutes Medications reviewed and adjusted accordingly: Yes - Plan Summary Plan Summary: may need ABG if mental state worsens, I suspect he is CO2 retainer due to his INGRIS and COPD.
[2016-08-04] MEDS ORDERED: LACTULOSE SYRUP 20 GM/30 ML UDCUP PO ONE (12:30)
--- NOTE | 2016-08-04 15:02 | PDOC PROGRESS REPORT ---
Subjective Progress Note for:: 08/04/16 Subjective:: Patient seems to be doing better with gradual improvement. Patient seems comfortable. Patient today noted to have mild increased wheezing. Currently resting comfortably. Pt is denying any chest arm or neck discomfort. Patient denying any PND, orthopnea. Patient denied any sustained palpitations, dizziness, syncope, near syncope. Patient denying any fever chills. Patient denying any other significant discomfort. Patient has not ambulated much. His room air O2 sat is 89% today. Patient is maintaining atrial fibrillation, heart rate reasonably well controlled. Review of systems: Rest review of systems negative. Medications: Medications have been reviewed. Physical Exam Vital Signs: Temp Pulse Resp BP Pulse Ox 97.9 F 73 18 128/70 H 90 L 08/04/16 11:39 08/04/16 14:00 08/04/16 11:39 08/04/16 11:39 08/04/16 11:39 Pulse Oximeter Nocturnal Start: 08/03/16 11: 12 Freq: Status: Active Document 08/04/16 04:05 [facility] (Rec: 08/04/16 04:39 [facility] [email or web address]) Nocturnal Pulse Oximetry Equipment Usage Equipment in Use Oxygen Delivery Method (includes room Room Air air) O2 Sat by Pulse Oximetry (92-100) 89 Continuous SpO2 Machine # 3 Intake & Output 08/03/16 08/04/16 08/05/16 06:59 06:59 06:59 Intake Total 900 1005 Output Total 625 475 Balance 275 530 Weight 79.1 kg 80.2 kg Exam: GENERAL: well-nourished and in no acute distress. Alert and oriented 2 HEAD: Atraumatic, normocephalic. EYES: Pupils equal round and reactive to light, extraocular movements intact, sclera anicteric, conjunctiva are normal. ENT: TMs normal, nares patent, oropharynx clear without exudates. Moist mucous membranes. No oral ulcerations or bleeding gums noted NECK: supple without lymphadenopathy. Trachea is central. No cervical or axillary lymphadenopathy noted. Carotids are 2+, JVD 8-10 CM LUNGS: Respiration seems nonlabored, no significant accessory muscle action noted. Mild bilateral wheezing noted. No dullness noted on percussion. CHEST: Palpation of the chest wall shows no significant chest wall tenderness. No other significant abnormalities noted. 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 ABDOMEN: Soft, no significant tenderness appreciated, normoactive bowel sounds. No guarding, no rebound. No rigidity noted . No masses appreciated. EXTREMITIES: Pedal pulses are 1-2+, no calf tenderness noted. No clubbing or cyanosis.1+ pedal edema noted NEUROLOGICAL: Focused neurological exam showed no significant neurologic deficit. Normal speech, no focal weakness appreciated. PSYCH: Normal mood, normal affect. Judgment and insight within normal limits. SKIN: No significant ecchymosis, rash, ulcerations or signs of pruritus noted. MUSCULOSKELETAL EXAM: No significant joint swelling noted. Results Laboratory Results: 08/04/16 05:10 08/04/16 05:10 08/04/16 08/04/16 05:10 05:10 WBC 19.4 H RBC 4.60 Hgb 14.5 Hct 44.4 MCV 97 MCH 31.5 MCHC 32.6 RDW 15.2 H Plt Count 165 Seg Neutrophils % Not Reportable Lymphocytes % Not Reportable Monocytes % Not Reportable Eosinophils % Not Reportable Basophils % Not Reportable Absolute Neutrophils Not Reportable Absolute Lymphocytes Not Reportable Absolute Monocytes Not Reportable Absolute Eosinophils Not Reportable Absolute Basophils Not Reportable Sodium 140.6 Potassium 3.8 Chloride 100 Carbon Dioxide 27 Anion Gap 14 BUN 82 H Creatinine 1.54 H Est GFR ( Amer) 53 L Est GFR (Non-Af Amer) 44 L Glucose 141 H Calcium 10.1 Magnesium 2.0 07/29/16 07/30/16 07/30/16 19:45 01:45 02:13 Troponin I < 0.012 Cancelled < 0.012 NT-Pro-B Natriuret Pep 07/30/16 07/31/16 08/01/16 06:14 04:48 04:59 Troponin I NT-Pro-B Natriuret Pep 6110 H 8080 H 6920 H 08/02/16 05:58 Troponin I NT-Pro-B Natriuret Pep 4780 H Impressions: Renal Ultrasound 08/01/16 00:00 IMPRESSION: No hydronephrosis Chest X-Ray 08/04/16 00:00 IMPRESSION: Resolution of the congestive failure pattern. Status: Image reviewed by nv - Chest x-ray shows no evidence of CHF. Assessment & Plan - Diagnosis (1) CHF (congestive heart failure) Qualifiers: Congestive heart failure type: diastolic Congestive heart failure chronicity: acute on chronic Qualified Code(s): I50.33 - Acute on chronic diastolic (congestive) heart failure Is this a current diagnosis for this admission?: Yes (2) Atrial fibrillation Qualifiers: Atrial fibrillation type: chronic Qualified Code(s): I48.2 - Chronic atrial fibrillation Is this a current diagnosis for this admission?: Yes (3) Hypertension Qualifiers: Hypertension type: essential hypertension Qualified Code(s): I10 - Essential (primary) hypertension Is this a current diagnosis for this admission?: Yes (4) Hypoxemia Is this a current diagnosis for this admission?: Yes (5) Acute respiratory failure Qualifiers: Respiratory failure complication: hypoxia Qualified Code(s): J96.01 - Acute respiratory failure with hypoxia Is this a current diagnosis for this admission?: Yes (6) COPD (chronic obstructive pulmonary disease) Qualifiers: Emphysema type: unspecified Is this a current diagnosis for this admission?: Yes - Notes Notes: Congestive heart failure: Seems clinically compensated based on clinical exam. JVP noted to be mildly elevated. Chest x-ray showed clear lung merchant. Patient seems to have predominantly right-sided CHF. Patient can follow with me to qualify him for oxygen if needed. Patient was on CPAP therapy but was discontinued because of noncompliance. Another trial could be made to have him comply with CPAP therapy. Atrial fibrillation: Chronic, heart rate well controlled. Continue chronic anticoagulation. Hypertension: Blood pressure under reasonable control. Hypoxemia: Today noted to to be at 89% O2 sat on room air. Acute respiratory failure: Significantly improved. COPD: Patient has severe COPD and currently in excessive elevation. Continue current therapy. - Time Time with patient: Greater than 35 minutes - CODE STATUS was discussed, patient remains full code. Surrogate decision-maker unchanged. Multiple medical problems were addressed.More than 50% of the time spent coordinating care, discussing management plans with involved caregivers. Management plans discussed with involved personnels. Medical decision making was of moderate complexity. Discussed with hospitalist and patient's relatives. At this time will sign off.
[2016-08-04] MEDS: SODIUM CHLORIDE NASAL SPRAY 44 ML NASL SCH ×2 (15:36→23:17)
[2016-08-04] MEDS: TAMSULOSIN HCL 0.4 MG CAP.SR.24H PO SCH (17:23)
[2016-08-05 05:20] LABS: PROTHROMBIN TIME 21.5 SEC (11.4-15.4)
[2016-08-05 05:38] LABS: ANION GAP 10 (5-19); BLOOD UREA NITROGEN 69 mg/dL (7-20); CALCIUM 10.3 mg/dL (8.4-10.2); CARBON DIOXIDE 30 mmol/L (22-30); CHLORIDE 101 mmol/L (98-107); CREATININE RESULT 1.43 mg/dL (0.52-1.25); GLUCOSE 138 mg/dL (75-110); MAGNESIUM 2.2 mg/dL (1.6-2.3); SODIUM 140.5 mmol/L (137-145)
[2016-08-05 05:41] LABS: HEMATOCRIT 46.6 % (37.9-51.0); HEMOGLOBIN 15.4 g/dL (13.5-17.0); HGB HCT DIFFERENCE -0.4; MEAN CORPUSCULAR HEMOGLOBIN 31.8 pg (27.0-33.4); MEAN CORPUSCULAR VOLUME 96 fl (80-97); RED BLOOD COUNT 4.85 10^6/uL (4.35-5.55); WHITE BLOOD COUNT 23.9 10^3/uL (4.0-10.5)
[2016-08-05 06:18] LABS: BASOPHILS % (MANUAL) 0 % (0-2); EOSINOPHILS % (MANUAL) 0 % (0-6); LYMPHOCYTES % (MANUAL) 2 % (13-45); TOTAL CELLS COUNTED 100
[2016-08-05 06:20] LABS: ANISOCYTOSIS SLIGHT; OVALOCYTES 1+; POIKILOCYTOSIS 1+
[2016-08-05] MEDS: CEFTRIAXONE 1 GM/D5W RTU 1 GM/50 ML RTUPB IV SCH (07:57)
[2016-08-05] MEDS: ACETAMINOPHEN 325 MG TABLET PO PRN (07:58)
[2016-08-05] MEDS: SODIUM CHLORIDE NASAL SPRAY 44 ML NASL SCH ×4 (09:16→22:50)
[2016-08-05] MEDS: SENNOSIDES/DOCUSATE 8.6-50 MG 1 EACH TABLET PO SCH ×2 (10:14→18:45)
[2016-08-05] MEDS: METOPROLOL SUCCINATE 50 MG TAB.SR.24H PO SCH (10:15)
[2016-08-05] MEDS: PREDNISONE 20 MG TABLET PO SCH (10:15)
[2016-08-05] MEDS: DILTIAZEM HCL 240 MG CAPSULE.CR PO SCH ×2 (10:15→22:48)
[2016-08-05] MEDS: FAMOTIDINE 20 MG TABLET PO SCH ×2 (10:17→22:48)
[2016-08-05] MEDS ORDERED: FUROSEMIDE 20 MG TABLET PO ONE (11:15)
--- NOTE | 2016-08-05 15:18 | PDOC PROGRESS REPORT ---
Subjective Progress Note for:: 08/05/16 Subjective:: Reason for visit: Follow-up congestive heart failure. Hospital course: Per H&P "NICOLA HEAD is a 81 year old male history of congestive heart failure A. fib presents from his physician's office with concerns of worsening congestive heart failure. Patient was noted to be satting 87% on room air at the office. Patient is not on oxygen at home. 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 weight fluctuated and his BNP actually trended up initially. He is noncompliant with I/O's. Bumex added and his antiHTN regimen titrated for better control of his BPs and afib rate with good success but at the expense of his renal function unfortunately. cessation of the diuretics and lifting of the fluid restriction has resulted in good improvement of his Scr back to baseline but still azotemic (with elevated BUN). Now showing recurrent fluid retention with recurring BLE edema and bibasilar crackles - achieving euvolemia remains quite problematic. he reported darker, more concentrated urine, foul smelling and had a burning sensation on urination with persistent hesitancy and urgency. His CBC shows a leukocytosis and urinalysis on in/out catheterized specimen shows evidence supporting a urinary tract infection. He has not had a catheter during his hospitalization. lab discarded sample prior to culture. His family continues to report some intermittent confusion starting Hermann night , talking out of his head at times and seems generally more lethargic. Incidentally noted are apneic episodes while asleep and his reports this has been going on for years. He underwent a sleep study and was qualified for CPAP but was intolerant of the machine. Subjective: He denies chest pain or palpitations and remains in rate controlled atrial fibrillation. He denies nausea, vomiting, fever, chills. Family also reports he finally had a large bowel movement, first one in 4 days. He is once again wheezing. ROS: per HPI plus a total of 10 systems reviewed, pertinent positives and negatives noted above, remaining systems negative. Physical Exam Vital Signs: Temp Pulse Resp BP Pulse Ox 98.8 F 80 18 120/71 97 08/05/16 11:56 08/05/16 11:56 08/05/16 11:56 08/05/16 11:56 08/05/16 11:56 Pulse Oximeter Nocturnal Start: 08/03/16 11: 12 Freq: Status: Active Document 08/04/16 06:50 [facility] (Rec: 08/05/16 02:21 [facility] [email or web address]) Nocturnal Pulse Oximetry Equipment Usage Equipment Discontinued Continuous SpO2 Machine # 3 Intake & Output 08/04/16 08/05/16 08/06/16 06:59 06:59 06:59 Intake Total 1005 1733 0 Output Total 475 350 25 Balance 530 1383 -25 Weight 80.2 kg 81.4 kg Results Laboratory Results: 08/05/16 04:35 08/05/16 04:35 08/05/16 08/05/16 04:35 04:35 WBC 23.9 H RBC 4.85 Hgb 15.4 Hct 46.6 MCV 96 MCH 31.8 MCHC 33.0 RDW 15.0 H Plt Count 165 Seg Neutrophils % Not Reportable Lymphocytes % Not Reportable Monocytes % Not Reportable Eosinophils % Not Reportable Basophils % Not Reportable Absolute Neutrophils Not Reportable Absolute Lymphocytes Not Reportable Absolute Monocytes Not Reportable Absolute Eosinophils Not Reportable Absolute Basophils Not Reportable Sodium 140.5 Potassium 4.0 Chloride 101 Carbon Dioxide 30 Anion Gap 10 BUN 69 H Creatinine 1.43 H Est GFR ( Amer) 57 L Est GFR (Non-Af Amer) 47 L Glucose 138 H Calcium 10.3 H Magnesium 2.2 07/29/16 07/30/16 07/30/16 19:45 01:45 02:13 Troponin I < 0.012 Cancelled < 0.012 NT-Pro-B Natriuret Pep 07/30/16 07/31/16 08/01/16 06:14 04:48 04:59 Troponin I NT-Pro-B Natriuret Pep 6110 H 8080 H 6920 H 08/02/16 08/05/16 05:58 04:35 Troponin I NT-Pro-B Natriuret Pep 4780 H 3080 H Impressions: Renal Ultrasound 08/01/16 00:00 IMPRESSION: No hydronephrosis Chest X-Ray 08/04/16 00:00 IMPRESSION: Resolution of the congestive failure pattern. Assessment & Plan - Diagnosis (1) CHF exacerbation Qualifiers: Congestive heart failure type: unspecified congestive heart failure type Qualified Code(s): I50.9 - Heart failure, unspecified Is this a current diagnosis for this admission?: YesPlan: worse again today. Appreciate cardiology's input. Echo complete, see report in chart but in summary LV ejection fraction is normal however there is 2/4 moderate diastolic dysfunction, RVH with RV dilatation, KENYA, mild MR, mod tricuspid regurg, severe pulm HTN. BNP trending down but clinically worsening; need to try oral lasix and monitor his renal function for worsening. (2) COPD (chronic obstructive pulmonary disease) Qualifiers: Emphysema type: unspecified Is this a current diagnosis for this admission?: YesPlan: bronchospasm has returned in spite of oral prednisone 40mg daily. resumed albuterol nebs, continue to monitor HR and his response. (3) Acute respiratory failure with hypoxia Is this a current diagnosis for this admission?: YesPlan: Multifactorial, improved down to only 2L. Added bronchodilator therapy and systemic steroids with good improvement but albuterol worsened his tachycardia and the atrovent worsened his urine retention. 89% on RA this morning while lying in bed. f/u on overnight oximetry results and room air sat daily to see if he qualifies for home O2. (4) Anticoagulation goal of INR 2.0 to 2.5 Is this a current diagnosis for this admission?: YesPlan: briefly supraTx; ck INR in am and resume coumadin today at slightly lower dose than home dose. (5) Atrial fibrillation Qualifiers: Atrial fibrillation type: chronic Qualified Code(s): I48.2 - Chronic atrial fibrillation Is this a current diagnosis for this admission?: YesPlan: Rate controlled, monitor for recurrent tachycardia with addition of albuterol nebs. (6) Hypertension Qualifiers: Hypertension type: essential hypertension Qualified Code(s): I10 - Essential (primary) hypertension Is this a current diagnosis for this admission?: YesPlan: Reasonably well controlled now. Titrate his regimen as clinically needed. (7) UTI (urinary tract infection) Qualifiers: Urinary tract infection type: acute cystitis Hematuria presence: without hematuria Qualified Code(s): N30.00 - Acute cystitis without hematuria Is this a current diagnosis for this admission?: YesPlan: Added Rocephin and asked the lab to culture the sample sent but it seems the sample was discarded. unfortunately his leukocytosis is worsening, will send repeat urine sample and culture; repeat blood cultures show no growth at 24 hours. (8) Constipation Qualifiers: Constipation type: unspecified constipation type Qualified Code(s): K59.00 - Constipation, unspecified Is this a current diagnosis for this admission?: YesPlan: resolved with lactulose x1 and bowel regimen. (9) Acute metabolic encephalopathy Is this a current diagnosis for this admission?: YesPlan: waxing and waning course. Multifactorial; likely related to azotemia plus hypoxia as he is noncompliant with his O2, CO2 retention as he is noncompliant with CPAP and effects of the infection. (10) Acute bacterial bronchitis Is this a current diagnosis for this admission?: YesPlan: previously on doxy and seemed to resolve. recurrent bronchospasm, unclear if simple COPD exac or recurrent bacterial bronchitis. already on rocephin and steroids. may need to broaden coverage to cover atypicals and pseudomonas if fails to improve. ck flu swab - Time Time Spent with patient: 25-34 minutes Medications reviewed and adjusted accordingly: Yes
--- NOTE | 2016-08-05 15:59 | EKG REPORT ---
SEVERITY:- ABNORMAL ECG - ATRIAL FIBRILLATION, V-RATE 60-91 VENTRICULAR PREMATURE COMPLEX : Confirmed by: Devon Bailon 05-Aug-2016 15:58:32
[2016-08-05] MEDS: FUROSEMIDE 20 MG TABLET PO SCH (18:45)
[2016-08-05] MEDS: TAMSULOSIN HCL 0.4 MG CAP.SR.24H PO SCH (18:46)
[2016-08-05] MEDS: WARFARIN SODIUM 4 MG TABLET PO SCH (22:49)
[2016-08-06 05:17] LABS: HEMATOCRIT 46.4 % (37.9-51.0); HEMOGLOBIN 15.5 g/dL (13.5-17.0); HGB HCT DIFFERENCE 0.1; MEAN CORPUSCULAR HEMOGLOBIN 32.3 pg (27.0-33.4); MEAN CORPUSCULAR HGB CONC 33.5 g/dL (32.0-36.0); MEAN CORPUSCULAR VOLUME 97 fl (80-97); RED CELL DISTRIBUTION WIDTH 15.4 % (11.5-14.0); WHITE BLOOD COUNT 24.6 10^3/uL (4.0-10.5)
[2016-08-06 05:29] LABS: ANION GAP 10 (5-19); BLOOD UREA NITROGEN 61 mg/dL (7-20); CALCIUM 10.1 mg/dL (8.4-10.2); CARBON DIOXIDE 30 mmol/L (22-30); CHLORIDE 100 mmol/L (98-107); CREATININE RESULT 1.31 mg/dL (0.52-1.25); GLUCOSE 184 mg/dL (75-110); POTASSIUM 4.1 mmol/L (3.6-5.0); SODIUM 140.2 mmol/L (137-145)
[2016-08-06 05:47] LABS: BAND NEUTROPHILS % (MANUAL) 1 % (3-5); BASOPHILS % (MANUAL) 0 % (0-2); EOSINOPHILS % (MANUAL) 0 % (0-6); LYMPHOCYTES % (MANUAL) 2 % (13-45); TOTAL CELLS COUNTED 100
[2016-08-06 05:49] LABS: ANISOCYTOSIS SLIGHT; BURR CELLS SLIGHT; OVALOCYTES SLIGHT; POIKILOCYTOSIS SLIGHT; SCHISTOCYTES SLIGHT; TOXIC GRANULATION SLIGHT; TOXIC VACUOLATION PRESENT
[2016-08-06] MEDS: CEFTRIAXONE 1 GM/D5W RTU 1 GM/50 ML RTUPB IV SCH (08:51)
[2016-08-06] MEDS: SODIUM CHLORIDE NASAL SPRAY 44 ML NASL SCH ×4 (08:51→21:47)
--- NOTE | 2016-08-06 09:24 | PDOC PROGRESS REPORT ---
Subjective Progress Note for:: 08/06/16 Subjective:: Patient is still complaining of cough and dyspnea But he is oxygenating adequately on 4 L nasal cannula There was no need for BiPAP He has no chest pain no abdominal pain is sitting UP and ambulating ; patient is empirically being treated for urinary tract infection with ceftriaxone Urine culture and sensitivities pending Leukocytosis is still persistent Physical Exam Vital Signs: Temp Pulse Resp BP Pulse Ox 98.0 F 93 19 149/80 H 96 08/06/16 08:15 08/06/16 08:15 08/06/16 08:15 08/06/16 08:15 08/06/16 08:15 Pulse Oximeter Nocturnal Start: 08/03/16 11: 12 Freq: Status: Active Document 08/04/16 06:50 JSM (Rec: 08/05/16 02:21 JSM [id number]) Nocturnal Pulse Oximetry Equipment Usage Equipment Discontinued Continuous SpO2 Machine # 3 Intake & Output 08/05/16 08/06/16 08/07/16 00:59 00:59 00:59 Intake Total 1483 669 10 Output Total 400 125 Balance 1083 544 10 Weight 80.2 kg 81.4 kg General appearance: PRESENT: cooperative, mild distress - He appears in very mild respiratory distress is somewhat tachypneic, thin, other - He looks chronically ill Head exam: PRESENT: atraumatic, normocephalic Eye exam: PRESENT: conjunctiva pink, EOMI, PERRLA. ABSENT: scleral icterus Respiratory exam: PRESENT: decreased breath sounds, rhonchi, wheezes - Bilaterally. ABSENT: accessory muscle use Cardiovascular exam: PRESENT: irregular rhythm. ABSENT: gallop, systolic murmur Pulses: PRESENT: normal dorsalis pedis pul GI/Abdominal exam: PRESENT: normal bowel sounds, soft. ABSENT: distended, guarding, mass, organolmegaly, rebound, tenderness Extremities exam: PRESENT: full ROM, other - No edema Neurological exam: PRESENT: alert, awake, oriented to person, oriented to place , oriented to time, oriented to situation, CN II-XII grossly intact. ABSENT: motor sensory deficit Results Laboratory Results: 08/06/16 04:45 08/06/16 04:45 08/06/16 08/06/16 04:45 04:45 WBC 24.6 H RBC 4.80 Hgb 15.5 Hct 46.4 MCV 97 MCH 32.3 MCHC 33.5 RDW 15.4 H Plt Count 181 Seg Neutrophils % Not Reportable Lymphocytes % Not Reportable Monocytes % Not Reportable Eosinophils % Not Reportable Basophils % Not Reportable Absolute Neutrophils Not Reportable Absolute Lymphocytes Not Reportable Absolute Monocytes Not Reportable Absolute Eosinophils Not Reportable Absolute Basophils Not Reportable Sodium 140.2 Potassium 4.1 Chloride 100 Carbon Dioxide 30 Anion Gap 10 BUN 61 H Creatinine 1.31 H Est GFR ( Amer) > 60 Est GFR (Non-Af Amer) 53 L Glucose 184 H Calcium 10.1 07/29/16 07/30/16 07/30/16 19:45 01:45 02:13 Troponin I < 0.012 Cancelled < 0.012 NT-Pro-B Natriuret Pep 07/30/16 07/31/16 08/01/16 06:14 04:48 04:59 Troponin I NT-Pro-B Natriuret Pep 6110 H 8080 H 6920 H 08/02/16 08/05/16 05:58 04:35 Troponin I NT-Pro-B Natriuret Pep 4780 H 3080 H Impressions: Renal Ultrasound 08/01/16 00:00 IMPRESSION: No hydronephrosis Chest X-Ray 08/04/16 00:00 IMPRESSION: Resolution of the congestive failure pattern. Assessment & Plan - Diagnosis (1) Acute respiratory failure Qualifiers: Respiratory failure complication: hypoxia Qualified Code(s): J96.01 - Acute respiratory failure with hypoxia Is this a current diagnosis for this admission?: YesPlan: Acute respiratory failure was secondary to CHF acute exacerbation and COPD exacerbation Patient a is improved He may not be able to move improved that much from now on; and the recovery may be slow We added a speak reevaluate and Pulmicort nebs to his medication regimen CHF appears compensated at this time (2) Atrial fibrillation Qualifiers: Atrial fibrillation type: chronic Qualified Code(s): I48.2 - Chronic atrial fibrillation Is this a current diagnosis for this admission?: YesPlan: Rate controlled Continue anticoagulation (3) Anticoagulation goal of INR 2.0 to 2.5 Is this a current diagnosis for this admission?: Yes (4) CHF exacerbation Qualifiers: Congestive heart failure type: diastolic Qualified Code(s): I50.33 - Acute on chronic diastolic (congestive) heart failure Is this a current diagnosis for this admission?: YesPlan: Compensated Patient has diastolic CHF and severe pulmonary hypertension (5) Hypertension Qualifiers: Hypertension type: essential hypertension Qualified Code(s): I10 - Essential (primary) hypertension Is this a current diagnosis for this admission?: Yes (6) COPD exacerbation Is this a current diagnosis for this admission?: YesPlan: Continue steroids nebs (7) Leukocytosis Is this a current diagnosis for this admission?: YesPlan: Is persistent Maybe related to steroid therapy - Time Time Spent with patient: 35 or more minutes - Consider discharge within 24-48 hours Home with home health or SNF facility
[2016-08-06] MEDS: METOPROLOL SUCCINATE 50 MG TAB.SR.24H PO SCH (09:45)
[2016-08-06] MEDS: PREDNISONE 20 MG TABLET PO SCH (09:46)
[2016-08-06] MEDS: SENNOSIDES/DOCUSATE 8.6-50 MG 1 EACH TABLET PO SCH ×2 (09:46→17:15)
[2016-08-06] MEDS: FAMOTIDINE 20 MG TABLET PO SCH ×2 (09:46→21:46)
[2016-08-06] MEDS: DILTIAZEM HCL 240 MG CAPSULE.CR PO SCH ×2 (09:46→21:46)
[2016-08-06] MEDS: FUROSEMIDE 20 MG TABLET PO SCH ×2 (09:46→17:15)
[2016-08-06] MEDS ORDERED: TIOTROPIUM BROMIDE DPI 5 CAP/KIT (18 MCG/CAP) IH ONE (11:00)
[2016-08-06] MEDS ORDERED: BUDESONIDE NEB 0.5 MG/2 ML AMPUL NEB ONE (11:00)
[2016-08-06] MEDS: TAMSULOSIN HCL 0.4 MG CAP.SR.24H PO SCH (17:15)
[2016-08-06] MEDS: BUDESONIDE NEB 0.5 MG/2 ML AMPUL NEB SCH (19:38)
[2016-08-06] MEDS: WARFARIN SODIUM 4 MG TABLET PO SCH (21:46)
[2016-08-07] MEDS: ACETAMINOPHEN 325 MG TABLET PO PRN (05:06)
[2016-08-07 06:30] LABS: PROTHROMBIN TIME 20.7 SEC (11.4-15.4)
[2016-08-07] MEDS: BUDESONIDE NEB 0.5 MG/2 ML AMPUL NEB SCH (07:47)
--- NOTE | 2016-08-07 08:47 | PDOC PROGRESS REPORT ---
Subjective Progress Note for:: 08/07/16 Subjective:: Patient is still short of breath, but oxygenating adequately on a nasal cannula He does not need BiPAP at night Use.He is still in atrial fibrillation alternating with normal sinus rhythm with multiple APCs A. fib is rate controlled He has no chest pain no fever no chills He is quite depressed because his [facility] per family an acute [place] Family wishes for him to be transferred to [facility] Physical Exam Vital Signs: Temp Pulse Resp BP Pulse Ox 98.2 F 78 16 141/78 H 92 08/07/16 07:48 08/07/16 07:48 08/07/16 07:48 08/07/16 07:48 08/07/16 07:48 Pulse Oximeter Nocturnal Start: 08/03/16 11: 12 Freq: Status: Active Document 08/04/16 06:50 JSM (Rec: 08/05/16 02:21 JSM [id number]) Nocturnal Pulse Oximetry Equipment Usage Equipment Discontinued Continuous SpO2 Machine # 3 Intake & Output 08/06/16 08/07/16 08/08/16 00:59 00:59 00:59 Intake Total 669 702 210 Output Total 125 125 100 Balance 544 577 110 Weight 81.4 kg 78.3 kg General appearance: PRESENT: mild distress, thin Head exam: PRESENT: atraumatic, normocephalic Eye exam: PRESENT: conjunctiva pink, EOMI, PERRLA. ABSENT: scleral icterus Neck exam: ABSENT: carotid bruit, JVD, lymphadenopathy, thyromegaly Respiratory exam: PRESENT: decreased breath sounds, rhonchi, symmetrical, wheezes Cardiovascular exam: PRESENT: irregular rhythm. ABSENT: diastolic murmur, gallop, systolic murmur Pulses: PRESENT: normal dorsalis pedis pul GI/Abdominal exam: PRESENT: normal bowel sounds, soft. ABSENT: distended, guarding, mass, organolmegaly, rebound, tenderness Neurological exam: PRESENT: alert, awake, oriented to person, oriented to place , oriented to time, oriented to situation, CN II-XII grossly intact. ABSENT: motor sensory deficit Results Laboratory Results: 08/06/16 04:45 08/06/16 04:45 08/05/16 10:24 Clean Catch Midstream Urine Culture - Final C.albicans/C.dubliniensis 07/29/16 07/30/16 07/30/16 19:45 01:45 02:13 Troponin I < 0.012 Cancelled < 0.012 NT-Pro-B Natriuret Pep 07/30/16 07/31/16 08/01/16 06:14 04:48 04:59 Troponin I NT-Pro-B Natriuret Pep 6110 H 8080 H 6920 H 08/02/16 08/05/16 05:58 04:35 Troponin I NT-Pro-B Natriuret Pep 4780 H 3080 H Impressions: Renal Ultrasound 08/01/16 00:00 IMPRESSION: No hydronephrosis Chest X-Ray 08/04/16 00:00 IMPRESSION: Resolution of the congestive failure pattern. Assessment & Plan - Diagnosis (1) Acute respiratory failure Qualifiers: Respiratory failure complication: hypoxia Qualified Code(s): J96.01 - Acute respiratory failure with hypoxia Is this a current diagnosis for this admission?: YesPlan: Chronic hypoxemia secondary to COPD exacerbation, severe pulmonary hypertension , diastolic CHF Patient's respiratory status is improved Continue O2 supplementation (2) Atrial fibrillation Qualifiers: Atrial fibrillation type: chronic Qualified Code(s): I48.2 - Chronic atrial fibrillation Is this a current diagnosis for this admission?: YesPlan: Rate controlled Continue beta blockers calcium channel blockers Continue chronic anticoagulation (3) Anticoagulation goal of INR 2.0 to 2.5 Is this a current diagnosis for this admission?: YesPlan: INR is low we will increase Coumadin to 5 mg daily at bedtime (4) CHF exacerbation Qualifiers: Congestive heart failure type: diastolic Qualified Code(s): I50.33 - Acute on chronic diastolic (congestive) heart failure Is this a current diagnosis for this admission?: YesPlan: Patient appears to be euvolemic at this time; continue Lasix by mouth (5) Hypertension Qualifiers: Hypertension type: essential hypertension Qualified Code(s): I10 - Essential (primary) hypertension Is this a current diagnosis for this admission?: Yes (6) COPD exacerbation Is this a current diagnosis for this admission?: YesPlan: Continue nebs steroids (7) Leukocytosis Is this a current diagnosis for this admission?: YesPlan: The etiology is unclear Could be secondary to SIRS ; patient may have a bacterial bronchitis ; there is no infiltrate on the chest x-ray We will start doxycycline to give him some antibiotic coverage (8) Pulmonary hypertension Is this a current diagnosis for this admission?: YesPlan: We did ask Dr. Jones to reevaluate the case There any medications that could optimize cardiac status? Patient may be a candidate for right-sided heart catheterization and tadalafil - Time Time Spent with patient: Patient did have fungus cultured in his urine It could be colonization of the skin; We will treat him with nystatin as fluconazole cannot be used together with Coumadin Time Spent with patient: 35 or more minutes
[2016-08-07] MEDS: SODIUM CHLORIDE NASAL SPRAY 44 ML NASL SCH ×3 (09:08→17:25)
[2016-08-07] MEDS: NYSTATIN 500000 UNIT/5 ML UDCUP PO SCH ×3 (09:15→17:24)
[2016-08-07] MEDS: SENNOSIDES/DOCUSATE 8.6-50 MG 1 EACH TABLET PO SCH ×2 (09:16→17:24)
[2016-08-07] MEDS: DILTIAZEM HCL 240 MG CAPSULE.CR PO SCH (09:16)
[2016-08-07] MEDS: PREDNISONE 20 MG TABLET PO SCH (09:16)
[2016-08-07] MEDS: METOPROLOL SUCCINATE 50 MG TAB.SR.24H PO SCH (09:16)
[2016-08-07] MEDS: FUROSEMIDE 20 MG TABLET PO SCH ×2 (09:17→17:25)
[2016-08-07] MEDS ORDERED: TRAMADOL HCL 50 MG TABLET PO PRN (09:54)
[2016-08-07] MEDS ORDERED: DOXYCYCLINE HYCLATE 100 MG TABLET PO SCH (10:00)
[2016-08-07] MEDS ORDERED: DIGOXIN 0.125 MG TABLET PO SCH (10:00)
[2016-08-07] MEDS ORDERED: TIOTROPIUM BROMIDE DPI 5 CAP/KIT (18 MCG/CAP) IH SCH (10:00)
[2016-08-07] MEDS ORDERED: LIDOCAINE 5% (700 MG) TRANSDERMAL ADH..PATCH TP ONE (11:00)
[2016-08-07] MEDS ORDERED: EPINEPHRINE INJ 1 MG/10 ML DISP.SYRIN ONE (15:33)
[2016-08-07] MEDS ORDERED: NALOXONE HCL INJ/PF 0.4 MG/1 ML SDV ONE (15:33)
[2016-08-07 16:15] VITALS: BP 131/84
--- NOTE | 2016-08-07 17:09 | PDOC TRANSFER SUMMARY ---
General Admission Date/PCP: 07/29/16 17:29 GLADYS HERNANDEZ NP Admission Date: 07/29/16 Transfer Date: 08/07/16 Accepting Facility: [facility] Accepting Physician: Dr Gordon Resuscitation Status: Full Code - Transfer Diagnosis (1) Acute respiratory failure Is this a current diagnosis for this admission?: Yes (2) Atrial fibrillation Is this a current diagnosis for this admission?: Yes (3) Anticoagulation goal of INR 2.0 to 2.5 Is this a current diagnosis for this admission?: Yes (4) CHF exacerbation Is this a current diagnosis for this admission?: Yes (5) Hypertension Is this a current diagnosis for this admission?: Yes (6) COPD exacerbation Is this a current diagnosis for this admission?: Yes (7) Leukocytosis Is this a current diagnosis for this admission?: Yes (8) Pulmonary hypertension Is this a current diagnosis for this admission?: Yes - Transfer Medications Home Medications: Albuterol Sulfate [Ventolin Hfa] 2 puff IH Q4HP PRN 07/29/16 Diltiazem HCl [Diltiazem 24Hr Cd] 240 mg PO BIDBS 07/29/16 Doxycycline Hyclate [Vibramycin] 100 mg PO Q12 07/29/16 Metoprolol Succinate [Toprol XL 200 mg Tablet] 200 mg PO DAILY 07/29/16 Prednisone [Deltasone] 20 mg PO BIDBS 07/29/16 Warfarin Sodium [Coumadin 5 mg Tablet] 5 mg PO QHS 07/29/16 Transfer Medications: Current Medications Acetaminophen (Tylenol 325 Mg Tablet) 975 mg PO Q6HP PRN PRN Reason: FOR PAIN OR TEMP Stop: 09/04/16 07:44 Last Admin: 08/07/16 05:06 Dose: 975 mg Albuterol (Ventolin 0.083% Neb 2.5 Mg/3 Ml Ampul) 2.5 mg NEB RTQ6HP PRN PRN Reason: FOR WHEEZING Stop: 09/03/16 11:25 Last Admin: 08/07/16 07:48 Dose: 2.5 mg Bisacodyl (Dulcolax 5 Mg Tablet) 10 mg PO DAILYP PRN PRN Reason: FOR CONSTIPATION Stop: 09/02/16 11:10 Budesonide (Pulmicort Neb 0.5 Mg/2 Ml Ampul) 0.5 mg NEB RTQ12 JIL Stop: 09/05/16 19:59 Last Admin: 08/07/16 07:47 Dose: 0.5 mg Diltiazem HCl (Cardizem Cd 240 Mg Capsule.Cr) 240 mg PO Q12 JIL Stop: 08/31/16 09:59 Last Admin: 08/07/16 09:16 Dose: 240 mg Doxycycline Hyclate (Vibramycin 100 Mg Tablet) 100 mg PO Q12 JIL Stop: 08/14/16 09:59 Last Admin: 08/07/16 09:20 Dose: 100 mg Furosemide (Lasix 20 Mg Tablet) 20 mg PO BID JIL Stop: 09/04/16 17:59 Last Admin: 08/07/16 09:17 Dose: 20 mg Ipratropium [place] (Atrovent 0.02% Neb 0.5 Mg/2.5 Ml Ampul) 0.5 mg NEB RTQ4HP PRN PRN Reason: FOR WHEEZING Stop: 08/29/16 11:06 Lidocaine (Lidoderm 5% (700 Mg) Transdermal Patch) 1 patch TP DAILY JIL Stop: 09/07/16 09:59 Metoprolol Succinate (Toprol Xl 50 Mg Tab.Sr) 200 mg PO DAILY JIL Stop: 08/29/16 09:59 Last Admin: 08/07/16 09:16 Dose: 200 mg Nystatin (Mycostatin 500,000 Unit/5 Ml Susp Udcup) 500,000 unit PO QID JIL Stop: 08/14/16 09:59 Last Admin: 08/07/16 14:34 Dose: 500,000 unit Prednisone (Deltasone 20 Mg Tablet) 40 mg PO DAILY JIL Stop: 09/02/16 09:59 Last Admin: 08/07/16 09:16 Dose: 40 mg Senna/Docusate Sodium (Senna Plus Tablet) 2 each PO BID JIL Stop: 09/02/16 17:59 Last Admin: 08/07/16 09:16 Dose: 2 each Sodium Chloride (Olimpo Nasal Wood 44 Ml Bottle) 1 spray NASL ACHS JIL Stop: 09/03/16 15:59 Last Admin: 08/07/16 10:48 Dose: 1 spray Tamsulosin HCl (Flomax 0.4 Mg Cap.Sr) 0.4 mg PO PCSUPPER JIL Stop: 08/31/16 17:59 Last Admin: 08/06/16 17:15 Dose: 0.4 mg Tiotropium [place] (Spiriva Handihaler 5 Cap/Kit (18 Mcg/Cap)) 1 cap IH DAILY JIL Stop: 09/06/16 09:59 Last Admin: 08/07/16 09:09 Dose: 1 cap Tramadol HCl (Ultram 50 Mg Tablet) 50 mg PO Q6HP PRN Stop: 08/14/16 09:53 Warfarin Sodium (Coumadin 5 Mg Tablet) 5 mg PO QHS JIL Stop: 09/06/16 21:59 - Allergies Allergies/Adverse Reactions: No Known Allergies Allergy (Verified 07/29/16 14:24) Hospital Course Hospital Course: 81 year old male with history of congestive heart failure AJordi ham presents from his physician's office with concerns of worsening congestive heart failure. Patient was noted to be satting 87% on room air at the office. Patient is not on oxygen at home. 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 and decreased the spironolactone Patient admits to weight gain peripheral edema Upon evaluation in the ED patient was diagnosed of acute on chronic CHF, and acute respiratory failure He was treated with IV Lasix He was placed on BiPAP support He was subsequently admitted under hospitalist service to [facility] for further evaluation and care Patient improved somewhat during hospitalisation with lasix, steroids nebs An echocardiogram showed severe pulmonary hypertension Right Ventricular pressure was >60 mm Hg We wish patient to be evaluated for Right Heart Catheterization and further therapy if indicated Physical Exam Vital Signs: Temp Pulse Resp BP Pulse Ox 98.9 F 87 18 131/84 H 94 08/07/16 15:48 08/07/16 15:48 08/07/16 15:48 08/07/16 15:48 08/07/16 15:48 Pulse Oximeter Nocturnal Start: 08/03/16 11: 12 Freq: Status: Active Document 08/04/16 06:50 UMU (Rec: 08/05/16 02:21 UMU [id number]) Nocturnal Pulse Oximetry Equipment Usage Equipment Discontinued Continuous SpO2 Machine # 3 Intake & Output 08/06/16 08/07/16 08/08/16 00:59 00:59 00:59 Intake Total 669 702 210 Output Total 125 125 100 Balance 544 577 110 Weight 81.4 kg 78.3 kg General appearance: PRESENT: no acute distress Eye exam: PRESENT: conjunctiva pink, EOMI, PERRLA. ABSENT: scleral icterus Neck exam: ABSENT: carotid bruit, JVD, lymphadenopathy, thyromegaly Respiratory exam: PRESENT: decreased breath sounds, tachypnea, wheezes Cardiovascular exam: PRESENT: irregular rhythm. ABSENT: diastolic murmur, rubs , systolic murmur GI/Abdominal exam: PRESENT: normal bowel sounds, soft. ABSENT: distended, guarding, mass, organolmegaly, rebound, tenderness Extremities exam: PRESENT: full ROM. ABSENT: calf tenderness, clubbing, pedal edema Neurological exam: PRESENT: alert, awake, oriented to person, oriented to place , oriented to time, oriented to situation, CN II-XII grossly intact. ABSENT: motor sensory deficit Skin exam: PRESENT: dry, intact, warm. ABSENT: cyanosis, rash Results Laboratory Results: 08/06/16 04:45 08/06/16 04:45 08/05/16 10:24 Clean Catch Midstream Urine Culture - Final C.albicans/C.dubliniensis 07/29/16 07/30/16 07/30/16 19:45 01:45 02:13 Troponin I < 0.012 Cancelled < 0.012 NT-Pro-B Natriuret Pep 07/30/16 07/31/16 08/01/16 06:14 04:48 04:59 Troponin I NT-Pro-B Natriuret Pep 6110 H 8080 H 6920 H 08/02/16 08/05/16 05:58 04:35 Troponin I NT-Pro-B Natriuret Pep 4780 H 3080 H Labs- Entire Visit 07/29/16 07/29/16 07/29/16 13:30 13:30 13:30 WBC 9.8 RBC 4.86 Hgb 16.0 Hct 47.2 MCV 97 MCH 32.9 MCHC 33.9 RDW 15.6 H Plt Count 206 Total Counted Seg Neutrophils % 77.9 Seg Neuts % (Manual) Band Neutrophils % Lymphocytes % 12.5 L Lymphocytes % (Manual) Atypical Lymphs % Monocytes % 8.3 Monocytes % (Manual) Eosinophils % 0.7 Eosinophils % (Manual) Basophils % 0.6 Basophils % (Manual) Absolute Neutrophils 7.6 Abs Neuts (Manual) Absolute Lymphocytes 1.2 Abs Lymphs (Manual) Absolute Monocytes 0.8 Abs Monocytes (Manual) Absolute Eosinophils 0.1 Absolute Eos (Manual) Absolute Basophils 0.1 Abs Basophils (Manual) Toxic Granulation Toxic Vacuolation Platelet Comment Poikilocytosis Anisocytosis Ovalocytes Wilmot Cells Schistocytes PT INR Carbonic Acid HCO3/H2CO3 Ratio ABG pH ABG pCO2 ABG pO2 ABG HCO3 ABG Total CO2 ABG O2 Saturation ABG Base Excess FiO2 Sodium 147.9 H Potassium 3.9 Chloride 107 Carbon Dioxide 27 Anion Gap 14 BUN 29 H Creatinine 1.37 H Est GFR ( Amer) > 60 Est GFR (Non-Af Amer) 50 L Glucose 100 Calcium 10.3 H Phosphorus Magnesium Total Bilirubin 1.2 Direct Bilirubin 0.5 H Indirect Bilirubin Not Reportable Neonat Total Bilirubin Not Reportable AST 22 ALT 32 Alkaline Phosphatase 136 H Creatine Kinase 85 CK-MB (CK-2) 2.07 Troponin I < 0.012 NT-Pro-B Natriuret Pep 3370 H Total Protein 7.5 Albumin 4.0 Triglycerides Cholesterol LDL Cholesterol Direct VLDL Cholesterol HDL Cholesterol TSH Urine Color Urine Appearance Urine pH Ur Specific [place] Urine Protein Urine Glucose (UA) Urine Ketones Urine Blood Urine Nitrite Urine Bilirubin Urine Urobilinogen Ur Leukocyte Esterase Urine WBC (Auto) Urine RBC (Auto) U Hyaline Cast (Auto) Urine Bacteria (Auto) Urine WBC Clumps Squamous Epi Cells Auto Urine Mucus (Auto) Urine Ascorbic Acid Influenza A (Rapid) Influenza B (Rapid) 07/29/16 07/29/16 07/29/16 13:30 14:00 19:45 WBC RBC Hgb Hct MCV MCH MCHC RDW Plt Count Total Counted Seg Neutrophils % Seg Neuts % (Manual) Band Neutrophils % Lymphocytes % Lymphocytes % (Manual) Atypical Lymphs % Monocytes % Monocytes % (Manual) Eosinophils % Eosinophils % (Manual) Basophils % Basophils % (Manual) Absolute Neutrophils Abs Neuts (Manual) Absolute Lymphocytes Abs Lymphs (Manual) Absolute Monocytes Abs Monocytes (Manual) Absolute Eosinophils Absolute Eos (Manual) Absolute Basophils Abs Basophils (Manual) Toxic Granulation Toxic Vacuolation Platelet Comment Poikilocytosis Anisocytosis Ovalocytes Wilmot Cells Schistocytes PT 31.7 H INR 2.91 Carbonic Acid HCO3/H2CO3 Ratio ABG pH ABG pCO2 ABG pO2 ABG HCO3 ABG Total CO2 ABG O2 Saturation ABG Base Excess FiO2 Sodium Potassium Chloride Carbon Dioxide Anion Gap BUN Creatinine Est GFR ( Amer) Est GFR (Non-Af Amer) Glucose Calcium Phosphorus Magnesium Total Bilirubin Direct Bilirubin Indirect Bilirubin Neonat Total Bilirubin AST ALT Alkaline Phosphatase Creatine Kinase CK-MB (CK-2) Troponin I < 0.012 NT-Pro-B Natriuret Pep Total Protein Albumin Triglycerides Cholesterol LDL Cholesterol Direct VLDL Cholesterol HDL Cholesterol TSH Urine Color YELLOW Urine Appearance CLEAR Urine pH 6.0 Ur Specific [place] 1.023 Urine Protein 100 H Urine Glucose (UA) 50 H Urine Ketones NEGATIVE Urine Blood NEGATIVE Urine Nitrite NEGATIVE Urine Bilirubin NEGATIVE Urine Urobilinogen 2.0 H Ur Leukocyte Esterase NEGATIVE Urine WBC (Auto) 1 Urine RBC (Auto) 4 U Hyaline Cast (Auto) Urine Bacteria (Auto) Urine WBC Clumps Squamous Epi Cells Auto Urine Mucus (Auto) Urine Ascorbic Acid NEGATIVE Influenza A (Rapid) Influenza B (Rapid) 07/30/16 07/30/16 07/30/16 01:45 02:13 06:14 WBC RBC Hgb Hct MCV MCH MCHC RDW Plt Count Total Counted Seg Neutrophils % Seg Neuts % (Manual) Band Neutrophils % Lymphocytes % Lymphocytes % (Manual) Atypical Lymphs % Monocytes % Monocytes % (Manual) Eosinophils % Eosinophils % (Manual) Basophils % Basophils % (Manual) Absolute Neutrophils Abs Neuts (Manual) Absolute Lymphocytes Abs Lymphs (Manual) Absolute Monocytes Abs Monocytes (Manual) Absolute Eosinophils Absolute Eos (Manual) Absolute Basophils Abs Basophils (Manual) Toxic Granulation Toxic Vacuolation Platelet Comment Poikilocytosis Anisocytosis Ovalocytes Jorden Cells Schistocytes PT 25.8 H INR 2.25 Carbonic Acid HCO3/H2CO3 Ratio ABG pH ABG pCO2 ABG pO2 ABG HCO3 ABG Total CO2 ABG O2 Saturation ABG Base Excess FiO2 Sodium Potassium Chloride Carbon Dioxide Anion Gap BUN Creatinine Est GFR ( Amer) Est GFR (Non-Af Amer) Glucose Calcium Phosphorus Magnesium Total Bilirubin Direct Bilirubin Indirect Bilirubin Neonat Total Bilirubin AST ALT Alkaline Phosphatase Creatine Kinase CK-MB (CK-2) Troponin I Cancelled < 0.012 NT-Pro-B Natriuret Pep Total Protein Albumin Triglycerides Cholesterol LDL Cholesterol Direct VLDL Cholesterol HDL Cholesterol TSH Urine Color Urine Appearance Urine pH Ur Specific [place] Urine Protein Urine Glucose (UA) Urine Ketones Urine Blood Urine Nitrite Urine Bilirubin Urine Urobilinogen Ur Leukocyte Esterase Urine WBC (Auto) Urine RBC (Auto) U Hyaline Cast (Auto) Urine Bacteria (Auto) Urine WBC Clumps Squamous Epi Cells Auto Urine Mucus (Auto) Urine Ascorbic Acid Influenza A (Rapid) Influenza B (Rapid) 07/30/16 07/30/16 07/30/16 06:14 06:14 06:14 WBC RBC Hgb Hct MCV MCH MCHC RDW Plt Count Total Counted Seg Neutrophils % Seg Neuts % (Manual) Band Neutrophils % Lymphocytes % Lymphocytes % (Manual) Atypical Lymphs % Monocytes % Monocytes % (Manual) Eosinophils % Eosinophils % (Manual) Basophils % Basophils % (Manual) Absolute Neutrophils Abs Neuts (Manual) Absolute Lymphocytes Abs Lymphs (Manual) Absolute Monocytes Abs Monocytes (Manual) Absolute Eosinophils Absolute Eos (Manual) Absolute Basophils Abs Basophils (Manual) Toxic Granulation Toxic Vacuolation Platelet Comment Poikilocytosis Anisocytosis Ovalocytes Jorden Cells Schistocytes PT INR Carbonic Acid HCO3/H2CO3 Ratio ABG pH ABG pCO2 ABG pO2 ABG HCO3 ABG Total CO2 ABG O2 Saturation ABG Base Excess FiO2 Sodium 145.6 H Potassium 3.7 Chloride 102 Carbon Dioxide 26 Anion Gap 18 BUN 32 H Creatinine 1.46 H Est GFR ( Amer) 56 L Est GFR (Non-Af Amer) 46 L Glucose 145 H Calcium 10.9 H Phosphorus Magnesium Total Bilirubin Direct Bilirubin Indirect Bilirubin Neonat Total Bilirubin AST ALT Alkaline Phosphatase Creatine Kinase CK-MB (CK-2) Troponin I NT-Pro-B Natriuret Pep 6110 H Total Protein Albumin Triglycerides 81 Cholesterol 173.45 LDL Cholesterol Direct 94 VLDL Cholesterol 16.0 HDL Cholesterol 45 TSH 4.02 Urine Color Urine Appearance Urine pH Ur Specific [place] Urine Protein Urine Glucose (UA) Urine Ketones Urine Blood Urine Nitrite Urine Bilirubin Urine Urobilinogen Ur Leukocyte Esterase Urine WBC (Auto) Urine RBC (Auto) U Hyaline Cast (Auto) Urine Bacteria (Auto) Urine WBC Clumps Squamous Epi Cells Auto Urine Mucus (Auto) Urine Ascorbic Acid Influenza A (Rapid) Influenza B (Rapid) 07/30/16 07/31/16 07/31/16 07:00 04:48 04:48 WBC RBC Hgb Hct MCV MCH MCHC RDW Plt Count Total Counted Seg Neutrophils % Seg Neuts % (Manual) Band Neutrophils % Lymphocytes % Lymphocytes % (Manual) Atypical Lymphs % Monocytes % Monocytes % (Manual) Eosinophils % Eosinophils % (Manual) Basophils % Basophils % (Manual) Absolute Neutrophils Abs Neuts (Manual) Absolute Lymphocytes Abs Lymphs (Manual) Absolute Monocytes Abs Monocytes (Manual) Absolute Eosinophils Absolute Eos (Manual) Absolute Basophils Abs Basophils (Manual) Toxic Granulation Toxic Vacuolation Platelet Comment Poikilocytosis Anisocytosis Ovalocytes Wilmot Cells Schistocytes PT 31.7 H INR 2.91 Carbonic Acid 1.04 L HCO3/H2CO3 Ratio 23:1 ABG pH 7.47 H ABG pCO2 34.4 L ABG pO2 69.1 L ABG HCO3 24.5 ABG Total CO2 25.6 ABG O2 Saturation 95.0 ABG Base Excess 1.5 FiO2 5 L Sodium 142.9 Potassium 3.3 L Chloride 103 Carbon Dioxide 26 Anion Gap 14 BUN 39 H Creatinine 1.73 H Est GFR ( Amer) 46 L Est GFR (Non-Af Amer) 38 L Glucose 152 H Calcium 10.5 H Phosphorus Magnesium Total Bilirubin Direct Bilirubin Indirect Bilirubin Neonat Total Bilirubin AST ALT Alkaline Phosphatase Creatine Kinase CK-MB (CK-2) Troponin I NT-Pro-B Natriuret Pep Total Protein Albumin Triglycerides Cholesterol LDL Cholesterol Direct VLDL Cholesterol HDL Cholesterol TSH Urine Color Urine Appearance Urine pH Ur Specific [place] Urine Protein Urine Glucose (UA) Urine Ketones Urine Blood Urine Nitrite Urine Bilirubin Urine Urobilinogen Ur Leukocyte Esterase Urine WBC (Auto) Urine RBC (Auto) U Hyaline Cast (Auto) Urine Bacteria (Auto) Urine WBC Clumps Squamous Epi Cells Auto Urine Mucus (Auto) Urine Ascorbic Acid Influenza A (Rapid) Influenza B (Rapid) 07/31/16 08/01/16 08/01/16 04:48 04:59 04:59 WBC RBC Hgb Hct MCV MCH MCHC RDW Plt Count Total Counted Seg Neutrophils % Seg Neuts % (Manual) Band Neutrophils % Lymphocytes % Lymphocytes % (Manual) Atypical Lymphs % Monocytes % Monocytes % (Manual) Eosinophils % Eosinophils % (Manual) Basophils % Basophils % (Manual) Absolute Neutrophils Abs Neuts (Manual) Absolute Lymphocytes Abs Lymphs (Manual) Absolute Monocytes Abs Monocytes (Manual) Absolute Eosinophils Absolute Eos (Manual) Absolute Basophils Abs Basophils (Manual) Toxic Granulation Toxic Vacuolation Platelet Comment Poikilocytosis Anisocytosis Ovalocytes Jorden Cells Schistocytes PT 46.6 H INR 4.71 Carbonic Acid HCO3/H2CO3 Ratio ABG pH ABG pCO2 ABG pO2 ABG HCO3 ABG Total CO2 ABG O2 Saturation ABG Base Excess FiO2 Sodium 139.0 Potassium 3.9 Chloride 100 Carbon Dioxide 25 Anion Gap 14 BUN 74 H Creatinine 3.00 H Est GFR ( Amer) 24 L Est GFR (Non-Af Amer) 20 L Glucose 156 H Calcium 9.7 Phosphorus Magnesium Total Bilirubin Direct Bilirubin Indirect Bilirubin Neonat Total Bilirubin AST ALT Alkaline Phosphatase Creatine Kinase CK-MB (CK-2) Troponin I NT-Pro-B Natriuret Pep 8080 H Total Protein Albumin Triglycerides Cholesterol LDL Cholesterol Direct VLDL Cholesterol HDL Cholesterol TSH Urine Color Urine Appearance Urine pH Ur Specific [place] Urine Protein Urine Glucose (UA) Urine Ketones Urine Blood Urine Nitrite Urine Bilirubin Urine Urobilinogen Ur Leukocyte Esterase Urine WBC (Auto) Urine RBC (Auto) U Hyaline Cast (Auto) Urine Bacteria (Auto) Urine WBC Clumps Squamous Epi Cells Auto Urine Mucus (Auto) Urine Ascorbic Acid Influenza A (Rapid) Influenza B (Rapid) 08/01/16 08/02/16 08/02/16 04:59 05:45 05:58 WBC RBC Hgb Hct MCV MCH MCHC RDW Plt Count Total Counted Seg Neutrophils % Seg Neuts % (Manual) Band Neutrophils % Lymphocytes % Lymphocytes % (Manual) Atypical Lymphs % Monocytes % Monocytes % (Manual) Eosinophils % Eosinophils % (Manual) Basophils % Basophils % (Manual) Absolute Neutrophils Abs Neuts (Manual) Absolute Lymphocytes Abs Lymphs (Manual) Absolute Monocytes Abs Monocytes (Manual) Absolute Eosinophils Absolute Eos (Manual) Absolute Basophils Abs Basophils (Manual) Toxic Granulation Toxic Vacuolation Platelet Comment Poikilocytosis Anisocytosis Ovalocytes Wilmot Cells Schistocytes PT 45.4 H INR 4.55 Carbonic Acid HCO3/H2CO3 Ratio ABG pH ABG pCO2 ABG pO2 ABG HCO3 ABG Total CO2 ABG O2 Saturation ABG Base Excess FiO2 Sodium Potassium Chloride Carbon Dioxide Anion Gap BUN Creatinine Est GFR ( Amer) Est GFR (Non-Af Amer) Glucose Calcium Phosphorus Magnesium Total Bilirubin Direct Bilirubin Indirect Bilirubin Neonat Total Bilirubin AST ALT Alkaline Phosphatase Creatine Kinase CK-MB (CK-2) Troponin I NT-Pro-B Natriuret Pep 6920 H Total Protein Albumin Triglycerides Cholesterol LDL Cholesterol Direct VLDL Cholesterol HDL Cholesterol TSH Urine Color YELLOW Urine Appearance CLOUDY Urine pH 5.0 Ur Specific [place] 1.011 Urine Protein NEGATIVE Urine Glucose (UA) NEGATIVE Urine Ketones NEGATIVE Urine Blood LARGE H Urine Nitrite NEGATIVE Urine Bilirubin NEGATIVE Urine Urobilinogen NEGATIVE Ur Leukocyte Esterase LARGE H Urine WBC (Auto) >182 Urine RBC (Auto) 63 U Hyaline Cast (Auto) 3 Urine Bacteria (Auto) 3+ Urine WBC Clumps MANY Squamous Epi Cells Auto 1 Urine Mucus (Auto) RARE Urine Ascorbic Acid NEGATIVE Influenza A (Rapid) Influenza B (Rapid) 08/02/16 08/02/16 08/02/16 05:58 05:58 05:58 WBC 18.4 H RBC 4.63 Hgb 14.5 Hct 44.5 MCV 96 MCH 31.4 MCHC 32.7 RDW 15.5 H Plt Count 156 Total Counted 100 Seg Neutrophils % Not Reportable Seg Neuts % (Manual) 92 H Band Neutrophils % Lymphocytes % Not Reportable Lymphocytes % (Manual) 4 L Atypical Lymphs % Monocytes % Not Reportable Monocytes % (Manual) 4 Eosinophils % Not Reportable Eosinophils % (Manual) 0 Basophils % Not Reportable Basophils % (Manual) 0 Absolute Neutrophils Not Reportable Abs Neuts (Manual) 16.9 H Absolute Lymphocytes Not Reportable Abs Lymphs (Manual) 0.7 Absolute Monocytes Not Reportable Abs Monocytes (Manual) 0.7 Absolute Eosinophils Not Reportable Absolute Eos (Manual) 0.0 Absolute Basophils Not Reportable Abs Basophils (Manual) 0.0 Toxic Granulation SLIGHT Toxic Vacuolation Platelet Comment ADEQUATE Poikilocytosis Anisocytosis SLIGHT Ovalocytes SLIGHT Jorden Cells Schistocytes PT INR Carbonic Acid HCO3/H2CO3 Ratio ABG pH ABG pCO2 ABG pO2 ABG HCO3 ABG Total CO2 ABG O2 Saturation ABG Base Excess FiO2 Sodium 139.4 Potassium 3.5 L Chloride 101 Carbon Dioxide 27 Anion Gap 11 BUN 86 H Creatinine 2.35 H Est GFR ( Amer) 32 L Est GFR (Non-Af Amer) 27 L Glucose 163 H Calcium 10.2 Phosphorus 4.6 H Magnesium 2.0 Total Bilirubin Direct Bilirubin Indirect Bilirubin Neonat Total Bilirubin AST ALT Alkaline Phosphatase Creatine Kinase CK-MB (CK-2) Troponin I NT-Pro-B Natriuret Pep 4780 H Total Protein Albumin Triglycerides Cholesterol LDL Cholesterol Direct VLDL Cholesterol HDL Cholesterol TSH Urine Color Urine Appearance Urine pH Ur Specific [place] Urine Protein Urine Glucose (UA) Urine Ketones Urine Blood Urine Nitrite Urine Bilirubin Urine Urobilinogen Ur Leukocyte Esterase Urine WBC (Auto) Urine RBC (Auto) U Hyaline Cast (Auto) Urine Bacteria (Auto) Urine WBC Clumps Squamous Epi Cells Auto Urine Mucus (Auto) Urine Ascorbic Acid Influenza A (Rapid) Influenza B (Rapid) 08/03/16 08/03/16 08/03/16 04:16 04:16 04:16 WBC 16.6 H RBC 4.45 Hgb 14.4 Hct 42.6 MCV 96 MCH 32.3 MCHC 33.7 RDW 15.7 H Plt Count 148 L Total Counted 100 Seg Neutrophils % Not Reportable Seg Neuts % (Manual) 90 H Band Neutrophils % Lymphocytes % Not Reportable Lymphocytes % (Manual) 2 L Atypical Lymphs % Monocytes % Not Reportable Monocytes % (Manual) 8 Eosinophils % Not Reportable Eosinophils % (Manual) 0 Basophils % Not Reportable Basophils % (Manual) 0 Absolute Neutrophils Not Reportable Abs Neuts (Manual) 14.9 H Absolute Lymphocytes Not Reportable Abs Lymphs (Manual) 0.3 L Absolute Monocytes Not Reportable Abs Monocytes (Manual) 1.3 Absolute Eosinophils Not Reportable Absolute Eos (Manual) 0.0 Absolute Basophils Not Reportable Abs Basophils (Manual) 0.0 Toxic Granulation 1+ Toxic Vacuolation Platelet Comment DECREASED Poikilocytosis 1+ Anisocytosis 1+ Ovalocytes 1+ Jorden Cells SLIGHT Schistocytes PT 36.0 H INR 3.41 Carbonic Acid HCO3/H2CO3 Ratio ABG pH ABG pCO2 ABG pO2 ABG HCO3 ABG Total CO2 ABG O2 Saturation ABG Base Excess FiO2 Sodium 138.8 Potassium 3.4 L Chloride 100 Carbon Dioxide 27 Anion Gap 12 BUN 88 H Creatinine 1.79 H Est GFR ( Amer) 44 L Est GFR (Non-Af Amer) 37 L Glucose 149 H Calcium 10.2 Phosphorus Magnesium 2.0 Total Bilirubin Direct Bilirubin Indirect Bilirubin Neonat Total Bilirubin AST ALT Alkaline Phosphatase Creatine Kinase CK-MB (CK-2) Troponin I NT-Pro-B Natriuret Pep Total Protein Albumin Triglycerides Cholesterol LDL Cholesterol Direct VLDL Cholesterol HDL Cholesterol TSH Urine Color Urine Appearance Urine pH Ur Specific [place] Urine Protein Urine Glucose (UA) Urine Ketones Urine Blood Urine Nitrite Urine Bilirubin Urine Urobilinogen Ur Leukocyte Esterase Urine WBC (Auto) Urine RBC (Auto) U Hyaline Cast (Auto) Urine Bacteria (Auto) Urine WBC Clumps Squamous Epi Cells Auto Urine Mucus (Auto) Urine Ascorbic Acid Influenza A (Rapid) Influenza B (Rapid) 08/04/16 08/04/16 08/05/16 05:10 05:10 04:35 WBC 19.4 H 23.9 H RBC 4.60 4.85 Hgb 14.5 15.4 Hct 44.4 46.6 MCV 97 96 MCH 31.5 31.8 MCHC 32.6 33.0 RDW 15.2 H 15.0 H Plt Count 165 165 Total Counted 100 100 Seg Neutrophils % Not Reportable Not Reportable Seg Neuts % (Manual) 87 H 86 H Band Neutrophils % 2 L Lymphocytes % Not Reportable Not Reportable Lymphocytes % (Manual) 2 L 2 L Atypical Lymphs % 2 Monocytes % Not Reportable Not Reportable Monocytes % (Manual) 7 12 Eosinophils % Not Reportable Not Reportable Eosinophils % (Manual) 0 0 Basophils % Not Reportable Not Reportable Basophils % (Manual) 0 0 Absolute Neutrophils Not Reportable Not Reportable Abs Neuts (Manual) 17.3 H 20.6 H Absolute Lymphocytes Not Reportable Not Reportable Abs Lymphs (Manual) 0.8 0.5 Absolute Monocytes Not Reportable Not Reportable Abs Monocytes (Manual) 1.4 2.9 H Absolute Eosinophils Not Reportable Not Reportable Absolute Eos (Manual) 0.0 0.0 Absolute Basophils Not Reportable Not Reportable Abs Basophils (Manual) 0.0 0.0 Toxic Granulation SLIGHT Toxic Vacuolation Not Reportable Platelet Comment ADEQUATE ADEQUATE Poikilocytosis 1+ Anisocytosis SLIGHT SLIGHT Ovalocytes SLIGHT 1+ Jorden Cells Schistocytes PT INR Carbonic Acid HCO3/H2CO3 Ratio ABG pH ABG pCO2 ABG pO2 ABG HCO3 ABG Total CO2 ABG O2 Saturation ABG Base Excess FiO2 Sodium 140.6 Potassium 3.8 Chloride 100 Carbon Dioxide 27 Anion Gap 14 BUN 82 H Creatinine 1.54 H Est GFR ( Amer) 53 L Est GFR (Non-Af Amer) 44 L Glucose 141 H Calcium 10.1 Phosphorus Magnesium 2.0 Total Bilirubin Direct Bilirubin Indirect Bilirubin Neonat Total Bilirubin AST ALT Alkaline Phosphatase Creatine Kinase CK-MB (CK-2) Troponin I NT-Pro-B Natriuret Pep Total Protein Albumin Triglycerides Cholesterol LDL Cholesterol Direct VLDL Cholesterol HDL Cholesterol TSH Urine Color Urine Appearance Urine pH Ur Specific [place] Urine Protein Urine Glucose (UA) Urine Ketones Urine Blood Urine Nitrite Urine Bilirubin Urine Urobilinogen Ur Leukocyte Esterase Urine WBC (Auto) Urine RBC (Auto) U Hyaline Cast (Auto) Urine Bacteria (Auto) Urine WBC Clumps Squamous Epi Cells Auto Urine Mucus (Auto) Urine Ascorbic Acid Influenza A (Rapid) Influenza B (Rapid) 03/27/17 03/27/17 03/27/17 04:35 04:35 04:35 WBC RBC Hgb Hct MCV MCH MCHC RDW Plt Count Total Counted Seg Neutrophils % Seg Neuts % (Manual) Band Neutrophils % Lymphocytes % Lymphocytes % (Manual) Atypical Lymphs % Monocytes % Monocytes % (Manual) Eosinophils % Eosinophils % (Manual) Basophils % Basophils % (Manual) Absolute Neutrophils Abs Neuts (Manual) Absolute Lymphocytes Abs Lymphs (Manual) Absolute Monocytes Abs Monocytes (Manual) Absolute Eosinophils Absolute Eos (Manual) Absolute Basophils Abs Basophils (Manual) Toxic Granulation Toxic Vacuolation Platelet Comment Poikilocytosis Anisocytosis Ovalocytes Wilmot Cells Schistocytes PT 21.5 H INR 1.79 Carbonic Acid HCO3/H2CO3 Ratio ABG pH ABG pCO2 ABG pO2 ABG HCO3 ABG Total CO2 ABG O2 Saturation ABG Base Excess FiO2 Sodium 140.5 Potassium 4.0 Chloride 101 Carbon Dioxide 30 Anion Gap 10 BUN 69 H Creatinine 1.43 H Est GFR ( Amer) 57 L Est GFR (Non-Af Amer) 47 L Glucose 138 H Calcium 10.3 H Phosphorus Magnesium 2.2 Total Bilirubin Direct Bilirubin Indirect Bilirubin Neonat Total Bilirubin AST ALT Alkaline Phosphatase Creatine Kinase CK-MB (CK-2) Troponin I NT-Pro-B Natriuret Pep 3080 H Total Protein Albumin Triglycerides Cholesterol LDL Cholesterol Direct VLDL Cholesterol HDL Cholesterol TSH Urine Color Urine Appearance Urine pH Ur Specific [place] Urine Protein Urine Glucose (UA) Urine Ketones Urine Blood Urine Nitrite Urine Bilirubin Urine Urobilinogen Ur Leukocyte Esterase Urine WBC (Auto) Urine RBC (Auto) U Hyaline Cast (Auto) Urine Bacteria (Auto) Urine WBC Clumps Squamous Epi Cells Auto Urine Mucus (Auto) Urine Ascorbic Acid Influenza A (Rapid) Influenza B (Rapid) 08/06/16 08/06/16 08/06/16 04:45 04:45 20:00 WBC 24.6 H RBC 4.80 Hgb 15.5 Hct 46.4 MCV 97 MCH 32.3 MCHC 33.5 RDW 15.4 H Plt Count 181 Total Counted 100 Seg Neutrophils % Not Reportable Seg Neuts % (Manual) 90 H Band Neutrophils % 1 L Lymphocytes % Not Reportable Lymphocytes % (Manual) 2 L Atypical Lymphs % Monocytes % Not Reportable Monocytes % (Manual) 7 Eosinophils % Not Reportable Eosinophils % (Manual) 0 Basophils % Not Reportable Basophils % (Manual) 0 Absolute Neutrophils Not Reportable Abs Neuts (Manual) 22.4 H Absolute Lymphocytes Not Reportable Abs Lymphs (Manual) 0.5 Absolute Monocytes Not Reportable Abs Monocytes (Manual) 1.7 H Absolute Eosinophils Not Reportable Absolute Eos (Manual) 0.0 Absolute Basophils Not Reportable Abs Basophils (Manual) 0.0 Toxic Granulation SLIGHT Toxic Vacuolation PRESENT Platelet Comment ADEQUATE Poikilocytosis SLIGHT Anisocytosis SLIGHT Ovalocytes SLIGHT [place]orden Cells SLIGHT Schistocytes SLIGHT PT INR Carbonic Acid HCO3/H2CO3 Ratio ABG pH ABG pCO2 ABG pO2 ABG HCO3 ABG Total CO2 ABG O2 Saturation ABG Base Excess FiO2 Sodium 140.2 Potassium 4.1 Chloride 100 Carbon Dioxide 30 Anion Gap 10 BUN 61 H Creatinine 1.31 H Est GFR ( Amer) > 60 Est GFR (Non-Af Amer) 53 L Glucose 184 H Calcium 10.1 Phosphorus Magnesium Total Bilirubin Direct Bilirubin Indirect Bilirubin Neonat Total Bilirubin AST ALT Alkaline Phosphatase Creatine Kinase CK-MB (CK-2) Troponin I NT-Pro-B Natriuret Pep Total Protein Albumin Triglycerides Cholesterol LDL Cholesterol Direct VLDL Cholesterol HDL Cholesterol TSH Urine Color Urine Appearance Urine pH Ur Specific [place] Urine Protein Urine Glucose (UA) Urine Ketones Urine Blood Urine Nitrite Urine Bilirubin Urine Urobilinogen Ur Leukocyte Esterase Urine WBC (Auto) Urine RBC (Auto) U Hyaline Cast (Auto) Urine Bacteria (Auto) Urine WBC Clumps Squamous Epi Cells Auto Urine Mucus (Auto) Urine Ascorbic Acid Influenza A (Rapid) NEGATIVE Influenza B (Rapid) NEGATIVE 08/07/16 05:14 WBC RBC Hgb Hct MCV MCH MCHC RDW Plt Count Total Counted Seg Neutrophils % Seg Neuts % (Manual) Band Neutrophils % Lymphocytes % Lymphocytes % (Manual) Atypical Lymphs % Monocytes % Monocytes % (Manual) Eosinophils % Eosinophils % (Manual) Basophils % Basophils % (Manual) Absolute Neutrophils Abs Neuts (Manual) Absolute Lymphocytes Abs Lymphs (Manual) Absolute Monocytes Abs Monocytes (Manual) Absolute Eosinophils Absolute Eos (Manual) Absolute Basophils Abs Basophils (Manual) Toxic Granulation Toxic Vacuolation Platelet Comment Poikilocytosis Anisocytosis Ovalocytes [place] Cells Schistocytes PT 20.7 H INR 1.71 Carbonic Acid HCO3/H2CO3 Ratio ABG pH ABG pCO2 ABG pO2 ABG HCO3 ABG Total CO2 ABG O2 Saturation ABG Base Excess FiO2 Sodium Potassium Chloride Carbon Dioxide Anion Gap BUN Creatinine Est GFR ( Amer) Est GFR (Non-Af Amer) Glucose Calcium Phosphorus Magnesium Total Bilirubin Direct Bilirubin Indirect Bilirubin Neonat Total Bilirubin AST ALT Alkaline Phosphatase Creatine Kinase CK-MB (CK-2) Troponin I NT-Pro-B Natriuret Pep Total Protein Albumin Triglycerides Cholesterol LDL Cholesterol Direct VLDL Cholesterol HDL Cholesterol TSH Urine Color Urine Appearance Urine pH Ur Specific [place] Urine Protein Urine Glucose (UA) Urine Ketones Urine Blood Urine Nitrite Urine Bilirubin Urine Urobilinogen Ur Leukocyte Esterase Urine WBC (Auto) Urine RBC (Auto) U Hyaline Cast (Auto) Urine Bacteria (Auto) Urine WBC Clumps Squamous Epi Cells Auto Urine Mucus (Auto) Urine Ascorbic Acid Influenza A (Rapid) Influenza B (Rapid) 08/05/16 10:24 Urine Culture - Final Clean Catch Midstream C.[email or web address]/C.[email or web address] 08/04/16 10:48 Blood Culture - Preliminary Blood NO GROWTH AFTER 72 HOURS 08/04/16 08:41 Blood Culture - Preliminary Blood NO GROWTH AFTER 72 HOURS EKG Comments: ATRIAL FIBRILLATION, V-RATE 60-91 [VPC] . VENTRICULAR PREMATURE COMPLEX Impressions: Renal Ultrasound 08/01/16 00:00 IMPRESSION: No hydronephrosis Chest X-Ray 08/04/16 00:00 IMPRESSION: Resolution of the congestive failure pattern. Plan Discharge Plan: Transfer To [facility] when a bed is available
[2016-08-07] MEDS: TAMSULOSIN HCL 0.4 MG CAP.SR.24H PO SCH (17:25)
[2016-08-07] MEDS ORDERED: GLUCAGON,HUMAN RECOMB 1 MG INJ ONE (20:23)
--- NOTE | 2016-08-07 21:21 | Progress Note ---
Provider Note Provider Note: Alyse notified for CODE BLUE room 314 patient was found on the ground unresponsive with PE a after rising from the toilet with a 4 x 4 centimeter hematoma over the right brow, receiving high-quality CPR with epinephrine every 3 minutes for 20 minutes with persistent non-shockable rhythm of PEA. A pulmonary exam with good bilateral air entry without JVD, spontaneous respirations or gag reflex, review of his history reveals echocardiogram this week suggesting severe pulmonary hypertension with an RVSP of greater than 60. No evidence of reversible causes as hypovolemia, hypoxia, acidosis abnormal potassium, hypothermia, tension pneumo, cardiac tamponade or thrombosis. Patient receives a trial of Narcan without response. Code is called off after greater than 20 minutes of high-quality CPR family members are notified.
[2016-08-07] MEDS ORDERED: WARFARIN SODIUM 5 MG TABLET PO SCH (22:00)
[2016-08-08] MEDS ORDERED: LIDOCAINE 5% (700 MG) TRANSDERMAL ADH..PATCH TP SCH (10:00)
--- NOTE | 2016-08-09 13:52 | Death Summary ---
Summary Date : 08/07/16 Time of :: 20:29 Autopsy: No Resuscitation Status: Full Code Primary Care Provider: Brent Cee Consulting Provider: Dr Bailon - Final Diagnosis (1) Acute respiratory failure Is this a current diagnosis for this admission?: Yes (2) Atrial fibrillation Is this a current diagnosis for this admission?: Yes (3) Anticoagulation goal of INR 2.0 to 2.5 Is this a current diagnosis for this admission?: Yes (4) CHF exacerbation Is this a current diagnosis for this admission?: Yes (5) Hypertension Is this a current diagnosis for this admission?: Yes (6) COPD exacerbation Is this a current diagnosis for this admission?: Yes (7) Leukocytosis Is this a current diagnosis for this admission?: Yes (8) Pulmonary hypertension Is this a current diagnosis for this admission?: Yes (9) PEA (Pulseless electrical activity) Is this a current diagnosis for this admission?: Yes Hospital Course:: Patient had been admitted with COPD Exacerbation , hypoxemia and respiratory failure He was diagnosed of severe Pulmonary Hypertension and was awaiting transfer to [facility] He suddenly collapsed and was in PEA arrest ACLS protocole was followed Patient
== END 2016-08-07 20:39 | DRG 291 ==
LOC: ER 13:09 → UNDOADMIN 16:40 → EH 16:40 → 3W 18:28
PROVIDERS: ADMIT Emergency Medicine; ATTEND Emergency Medicine
PROC: 5A09457 Assistance with Respiratory Ventilation, 24-96 Consecutive Hours, Continuous Positive Airway Pressure (ICD-10-PCS; principal; 2016-07-29)
PROC: 3E0F73Z Introduction of Anti-inflammatory into Respiratory Tract, Via Natural or Artificial Opening (ICD-10-PCS; 2016-07-30)
DX: I11.0 Hypertensive heart disease with heart failure (principal); J96.01 Acute respiratory failure with hypoxia; G93.41 Metabolic encephalopathy; J44.0 Chronic obstructive pulmonary disease with (acute) lower respiratory infection; J44.1 Chronic obstructive pulmonary disease with (acute) exacerbation; N30.00 Acute cystitis without hematuria; I50.43 Acute on chronic combined systolic (congestive) and diastolic (congestive) heart failure; I48.2 Chronic atrial fibrillation; I07.1 Rheumatic tricuspid insufficiency; J20.8 Acute bronchitis due to other specified organisms; I27.2 Other secondary pulmonary hypertension; K59.00 Constipation, unspecified; Z96.651 Presence of right artificial knee joint; Z87.891 Personal history of nicotine dependence; Z79.01 Long term (current) use of anticoagulants; Z79.899 Other long term (current) drug therapy; Z91.19 Patient's noncompliance with other medical treatment and regimen
CPT/HCPCS: 36415; 36600; 71010; 71020; 76770; 80048; 80053; 80061; 81001; 82550; 82553; 82803; 82962; 83036; 83735; 83880; 84100; 84443; 84484; 85025; 85610; 87040; 87086; 87804; 92950; 93005; 93010; 93306; 94660; 94762; 96374; 99291; J0171; J0360; J0696; J1940; J2310; J2920; J3490; J7030; J7512; S0028

== ENCOUNTER → 2016-07-29 | Outpatient (CLI) | payer MEDICARE, BC ==
[2016-07-29 09:43] LABS: ANION GAP 14 (5-19); BLOOD UREA NITROGEN 30 mg/dL (7-20); CALCIUM 10.3 mg/dL (8.4-10.2); CARBON DIOXIDE 27 mmol/L (22-30); CHLORIDE 106 mmol/L (98-107); GLUCOSE 126 mg/dL (75-110); POTASSIUM 4.1 mmol/L (3.6-5.0)
== END ==
LOC: OD 08:27
PROVIDERS: ATTEND Internal Medicine Cardiovascular Disease
DX: R73.09 Other abnormal glucose (principal); I48.91 Unspecified atrial fibrillation; Z79.01 Long term (current) use of anticoagulants
CPT/HCPCS: 36415; 80048; 83036